=== PATIENT | female | born 1945 | race Caucasian/White ===

== ENCOUNTER 2019-08-30 09:15 | Outpatient (CLI) | payer MEDICARE, SELFPAY ==
--- NOTE | ~2019-08-30 | MM_ITS ---
EXAMINATION: MM screening joshua LT w justine HISTORY: Screening mammogram TECHNIQUE: Craniocaudal and mediolateral oblique 3-D tomosynthesis images were obtained and synthetic 2-D images were generated. CAD analysis was submitted and interpreted. COMPARISON: 07/06/2018, 07/02/2017, 06/26/2016 left digital screening mammogram examinations BREAST PARENCHYMAL COMPOSITION: There are scattered areas of fibroglandular density. FINDINGS: History of right mastectomy in 1988. History of prior left benign biopsy. There is no evidence of suspicious mass, calcification, or architectural distortion to suggest malig ronaldo in either breast. There has been no suspicious interval change. IMPRESSION: 1. No mammographic evidence of malignancy. 2. Recommend routine screening mammography in one year. BI-RADS Category 1: Negative Reviewed, dictated and finalized at location A.
== END 2019-08-30 09:16 | disposition home or self-care (01) ==
PROVIDERS: PCP Internal Medicine; Visit Provider Obstetrics & Gynecology
DX: Z12.31 Encounter for screening mammogram for malignant neoplasm of breast (principal)
CPT/HCPCS: 77063; 77067

== ENCOUNTER 2019-10-12 14:48 | Outpatient (CLI) | payer MEDICARE, SELFPAY ==
--- NOTE | ~2019-10-12 | US_ITS ---
EXAMINATION: US venous doppler LE RT EXAM DATE: 10/12/2019 15:20 INDICATION: Right knee swelling. Total knee arthroplasty 2 weeks ago. TECHNIQUE: Multiple grayscale, color flow and Doppler images of the right lower extremity deep venous system were obtained and reviewed. Comparison is made to prior examination from 02/26/2012. FINDINGS: The right common femoral, femoral and profunda veins demonstrate normal color flow, respira tory variation, augmentation and compressibility. Compressibility, color flow confirmed within the r ight popliteal, posterior tibial, peroneal, and greater saphenous veins. Region annotated along lateral aspect right knee demonstrates anechoic fluid collection at 5.4 x 1.3 x 3.7 cm, This is nonspecific but most likely postoperative hematoma seroma, or could be small joint effusion. IMPRESSION: 1. No right lower extremity deep venous thrombosis. 2. Anechoic fluid-filled region lateral aspect of knee, could be hematoma, seroma, or small joint ef fusion. Reviewed, dictated and finalized at location A. IMPRESSION: 1. No right lower extremity deep venous thrombosis. 2. Anechoic fluid-filled region lateral aspect of knee, could be hematoma, ser justin, or small joint effusion.
[2019-10-12 15:41] LABS: Add Urine Microscopic? YES; Appearance Urine Clear (Clear); Bilirubin Urine Negative (Negative); Blood Urine Negative (Negative); Color Urine Yellow (Yellow); Glucose Urine UA Negative (Negative); Ketones Urine Negative (Negative); Leukocyte Esterase Ur Trace LEU/UL (Negative); Mucus Urine Rare /lpf; Nitrate Urine Negative (Negative); Protein Urine Negative (Negative); Specific Grav Ur 1.011 (1.001-1.035); Squamous Epithelial Cell Urine Rare /hpf (Few); Urobilinogen Urine Negative mg/dL (<2.0); WBC Urine 0-3 /hpf
== END 2019-10-12 14:49 | disposition home or self-care (01) ==
PROVIDERS: PCP Internal Medicine; Visit Provider Clinical Nurse Specialist
DX: M79.89 Other specified soft tissue disorders (principal); R35.0 Frequency of micturition
CPT/HCPCS: 81001; 93971

== ENCOUNTER 2020-11-14 05:58 | Emergency (ER) | payer MEDICARE, SELFPAY ==
[2020-11-14] VITALS (9 sets, daily range): BP systolic 147–171; BP diastolic 71–94; PULSE 85–105; RESP 18; TEMP 36.7; O2SAT 94–100
--- NOTE | ~2020-11-14 | US_ITS ---
EXAMINATION: US venous doppler [facility] DATE: 11/14/2020 07:38 INDICATION: Left calf pain. TECHNIQUE: Grayscale ultrasound images without and with compression and Doppler ultrasound images of the left lower extremity veins were obtained. COMPARISON: None. FINDINGS: The visualized portions of left common femoral vein, profunda (deep) femoral vein, femoral vein, popl iteal vein, peroneal veins, posterior tibial veins, and greater saphenous vein outflow are patent. IMPRESSION: 1. No deep venous thrombosis. Reviewed, dictated and finalized at location A.
--- NOTE | 2020-11-14 06:08 | ED.EXTPRO ---
HPI - Extremity Problem General Chief complaint: Extremity Problem,Nontraumatic <Antonio Sewell DO - Last Filed: 11/14/20 14:09> Stated complaint: blood clot? <Antonio Sewell DO - Last Filed: 11/14/20 14:09> Time Seen by Provider: 11/14/20 06:05 <Antonio Sewell DO - Last Filed: 11/14/20 14:09> Source: RN notes reviewed <Antonio Sewell DO - Last Filed: 11/14/20 14:09> History of Present Illness HPI Narrative: Patient presents emergency department from home for left calf pain. Patient states she had knee surgery performed on 10/26/2020 she states that this evening she had several episodes of pain in her left posterior calf and posterior knee she denies any trauma or injury she states the pain is improved at this time she denies any fever chills chest pain shortness of breath or any other symptoms states she is on 81 mg aspirin twice a day <Antonio Sewell DO - Last Filed: 11/14/20 14:09> Related Data Home medications: Home Medications Medication Instructions Recorded Confirmed ascorbic acid (vitamin C) 1,000 mg 1 gm PO DAILY 01/25/19 10/06/20 tablet aspirin 81 mg tablet,delayed 81 mg PO DAILY 01/25/19 10/06/20 release calcium carbonate 600 mg (1,500 cap PO BID cap 01/25/19 10/06/20 mg)-vitamin D3 500 unit capsule camphor-methyl salicylate-menthol patch TOPICAL PRN 01/25/19 10/06/20 topical patch glucosamine-chondroitin 250 mg-200 2 tablet PO .QD tablet 01/25/19 10/06/20 mg tablet menthol 4 % topical gel 1 applic TOPICAL BID PRN ml 01/25/19 10/06/20 hcsfdbcrchwb-ybhuzudm-wscngl tablet 1 tablet PO DAILY 01/25/19 10/06/20 vit C 250 mg-vit E 90 mg-zinc 40 1 tablet PO BID 01/25/19 10/06/20 mg-copper 1 ma-yryvys-nojfuf capsule vitamin B complex 1 tablet PO DAILY 01/25/19 10/06/20 fluticasone propionate 50 1 spray INTRANASAL DAILY 02/09/20 10/06/20 mcg/actuation nasal spray,suspension <Antonio Sewell DO - Last Filed: 11/14/20 14:09> Allergies/Adverse reactions: Allergies Allergy/AdvReac Type Severity Reaction Status Date / Time nitrofurantoin Allergy Mild unknown Verified 11/14/20 06:11 Quinolones Allergy Mild unknown Verified 11/14/20 06:11 ciprofloxacin Allergy Unknown Nausea Verified 11/14/20 06:11 cyclobenzaprine Allergy Unknown Nausea Verified 11/14/20 06:11 guaifenesin Allergy Unknown Unknown Verified 11/14/20 06:11 meloxicam Allergy Unknown Nausea Verified 11/14/20 06:11 pseudoephedrine Allergy Unknown fast heart Verified 11/14/20 06:11 beat GUAIFEN SR Allergy Mild unknown Uncoded 11/14/20 06:11 <Antonio Sewell DO - Last Filed: 11/14/20 14:09> Review of Systems Review of Systems: Gen.: Denies fevers or chills Respiratory: Denies shortness of breath CV: Denies chest pain or palpitations GI: Denies abdominal pain nausea, emesis Musculoskeletal: See HPI Neuro: Denies numbness, tingling, weakness or focal weakness Skin: Denies rash Except as documented, all other systems reviewed and negative <Antonio Sewell DO - Last Filed: 11/14/20 14:09> [facility] Past Medical History Medical History: Medical History ARPIT positive (~2019) Contact dermatitis 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
[2020-11-14 06:49] LABS: Basophils Percent Auto 0.8 % (0.2-1.2); Eosinophils Absolute Auto 0.1 K/mm3 (0-0.3); Eosinophils Percent Auto 2.8 % (0-4.4); Hematocrit 37.1 % (37.0-47.0); Hemoglobin 12.2 g/dL (12.0-15.0); Immature Granulocyte Absolute 0.01 K/mm3 (0.00-0.031); Immature Granulocyte Percent A 0.2 % (0-0.5); Lymphocytes Absolute Auto 1.05 K/mm3 (0.9-3.2); Lymphocytes Percent Auto 20.7 % (18.3-44.2); Mean Corpuscular HGB Conc 32.9 g/dl (32-36); Mean Corpuscular Hemoglobin 32.2 pg (26-34); Mean Corpuscular Volume 97.9 fl (80-100); Mean Platelet Volume 8.6 fl (7.4-10.4); Monocytes Absolute Auto 0.5 K/mm3 (0.1-0.6); Monocytes Percent Auto 10.5 % (2.6-8.5); Neutrophils Absolute Auto 3.3 K/mm3 (1.3-6.7); Platelet Count Result 267 k/mm3 (150-375); Red Blood Count 3.79 M/mm3 (4.2-5.4); Red Cell Distribution Width 13.6 % (11.5-14.5); White Blood Count 5.1 K/mm3 (4.5-10.0)
[2020-11-14 07:03] LABS: Anion Gap 7 mmol/L (8-16); Blood Urea Nitrogen 19 mg/dL (7-17); Calcium 9.4 mg/dL (8.4-10.2); Carbon Dioxide 29 mmol/L (22-30); Chloride 103 mmol/L (98-107); Estimated CRCL calculation 57 ml/min; Estimated Glomerular Filt Rate > 60; Glucose 115 mg/dL (65-110); Potassium 3.7 mmol/L (3.4-5.0); Sodium 139 mmol/L (137-145)
[2020-11-14 07:09] LABS: Prothrombin Time 12.8 Seconds (11.1-14.7)
[2020-11-14 07:10] LABS: Partial Thromboplastin Time 28.4 SECONDS (22.3-36.8)
== END 2020-11-14 09:04 | disposition home or self-care (01) ==
PROVIDERS: Emergency Medicine; Emergency Provider Emergency Medicine; PCP Internal Medicine
DX: M79.605 Pain in left leg (principal); I10 Essential (primary) hypertension; G47.33 Obstructive sleep apnea (adult) (pediatric); Z98.890 Other specified postprocedural states; Z79.82 Long term (current) use of aspirin; Z79.899 Other long term (current) drug therapy
CPT/HCPCS: 36415; 80048; 85025; 85610; 85730; 93971; 99284

== ENCOUNTER 2022-02-04 15:03 | Outpatient (CLI) | payer MEDICARE, SELFPAY ==
--- NOTE | ~2022-02-04 | MM_ITS ---
EXAMINATION: MM screening joshua LT w justine HISTORY: Screening left mammogram, history of right mastectomy TECHNIQUE: Craniocaudal and mediolateral oblique 3-D tomosynthesis images were obtained and synthetic 2-D images were generated. CAD analysis was submitted and interpreted. COMPARISON: 08/30/2019, 07/06/2018, 07/02/2017 BREAST PARENCHYMAL COMPOSITION: There are scattered areas of fibroglandular density. FINDINGS: No suspicious mass, calcification, or architectural distortion are identified to suggest ma lignancy. There has been no suspicious interval change.. IMPRESSION: 1. No mammographic evidence of malignancy. 2. Recommend routine screening mammography in one year. BI-RADS Category 1: Negative Reviewed, dictated and finalized at location A. WELL LOGGER
== END 2022-02-04 15:04 | disposition home or self-care (01) ==
PROVIDERS: PCP Internal Medicine; Visit Provider Obstetrics & Gynecology
DX: Z12.31 Encounter for screening mammogram for malignant neoplasm of breast (principal)
CPT/HCPCS: 77063; 77067

== ENCOUNTER → 2022-08-21 12:00 | Outpatient (CLI) | payer MEDICARE, SELFPAY ==
--- NOTE | ~2022-08-21 | US_ITS ---
EXAMINATION: US renal BI DATE: 08/22/2022 14:46 INDICATION: Bilateral flank pain. TECHNIQUE: Multiple ultrasound grayscale images of the kidneys were obtained. COMPARISON: Ultrasound kidneys 03/31/13 FINDINGS: The right kidney measures 10.9 x 4.5 x 4.3 cm. The left kidney measures 10.6 x 5.1 x 5.0 cm. The kidn eys demonstrate normal parenchymal echogenicity. There are cysts in the kidneys measuring up to 3.8 c m on the left. There is no hydronephrosis. The bladder is not well distended. IMPRESSION: 1. Normal kidney sizes. No hydronephrosis. Reviewed, dictated and finalized at location A.
== END ==
PROVIDERS: PCP Nurse Practitioner Adult Health; Visit Provider Nurse Practitioner Adult Health
DX: R10.9 Unspecified abdominal pain (principal)
CPT/HCPCS: 76775

== ENCOUNTER 2023-04-10 09:46 | Outpatient (CLI) | payer MEDICARE, SELFPAY ==
--- NOTE | ~2023-04-10 | MM_ITS ---
EXAMINATION: MM screening joshua LT w justine HISTORY: Screening TECHNIQUE: Craniocaudal and mediolateral oblique 3-D tomosynthesis images were obtained and synthetic 2-D images were generated. CAD analysis was submitted and interpreted. COMPARISON: Comparison to multiple prior studies sequentially, with oldest reviewed study dated 06/19. BREAST PARENCHYMAL COMPOSITION: There are scattered areas of fibroglandular density. FINDINGS: There is no evidence of suspicious mass, calcification, or architectural distortion to sugg est malignancy in either breast. There has been no suspicious interval change. IMPRESSION: 1. No mammographic evidence of malignancy. 2. Recommend routine screening mammography in one year. BI-RADS Category 1: Negative Reviewed, dictated and finalized at location A. ER HELPER VINYL COATING
== END 2023-04-10 09:47 | disposition home or self-care (01) ==
PROVIDERS: PCP Internal Medicine; Visit Provider Obstetrics & Gynecology
DX: Z12.31 Encounter for screening mammogram for malignant neoplasm of breast (principal)
CPT/HCPCS: 77063; 77067

== ENCOUNTER 2024-05-21 12:38 | Outpatient (CLI) | payer MEDICARE, SELFPAY ==
--- OUTSIDE RECORDS SUMMARY | 2024-05-21 12:41 | XMS_ITS | Referral Summary ---
Author Organization [facility] at the [facility] Office Center Address [address] [place] [address] Care Team Providers Care Hook Up Name Role Phone Shira Adan RN Unavailable Unavailable Shira Adan RN Unavailable Unavailable Shira Adan RN Unavailable Unavailable Monroe Reyes DO Primary Care Provider [phone] Allergies Active Allergy Reactions Criticality Noted Date Comments Ciprofloxacin Cyclobenzaprine Nausea And Vomiting 08/23/2019 Guaifenesin Palpitations Low 08/23/2019 Heart racing Meloxicam Nausea And Vomiting,Nausea only Low 08/23/2019 Nitrofurantoin Rash Medium 08/23/2019 Pseudoephedrine Palpitations Low 07/21/2012 Pseudoephedrine Sulfate Other (See comments) Low Quinolones Nausea And Vomiting,Nausea & Vomiting Low 07/21/2012 Medications amLODIPine (NORVASC) 5 mg tablet Take 1 tablet (5 mg total) by mouth daily 0 Active atorvastatin (LIPITOR) 10 mg tablet Take 1 tablet (10 mg total) by mouth nightly 2 Active celecoxib (CeleBREX) 200 mg capsule Take 1 capsule (200 mg total) by mouth 2 (two) times a day 3 Active methylcellulose , laxative, (CITRUCEL) 500 mg tablet Take 1 tablet (500 mg total) by mouth daily Active hydroCHLOROthia zide (HYDRODIURIL) 12.5 mg tablet Take 1 tablet (12.5 mg total) by mouth daily 12/28/202 3 Active glucosamine-cho ndroitin 500-400 mg capsule Take 2 capsules by mouth daily 0 Active ascorbic acid (VITAMIN C) 1,000 mg tablet Take 1 tablet (1,000 mg total) by mouth daily 0 Active vit A/vit C/vit E/zinc/copper (PRESERVISION AREDS ORAL) Take 1 tablet by mouth 2 (two) times a day 0 Active calcium carbonate-vitam in D3 (Calcium 600 with Vitamin D3) 1,500 mg (600 mg elemental)-500 unit capsule Take 1 tablet by mouth daily 0 Active lidocaine HCL-benzyl alcohoL (Salonpas Lidocaine Plus) 4-10 % liquid roll-on Apply topically Active lidocaine-menth ol 4-1 % adhesive patch,medicated Apply topically Active bacitracin 500 unit/gram ointmentIndicat ions:Contusion of left forearm, initial encounter Apply topically 2 (two) times a day 28 g 4 Active Active Problems Problem Noted Date Diagnosed Date Varicose veins of left lower extremity with pain 12/06/2022 Assessment & Plan (12/06/2022 1:26 PM CDT): Left lower extremity CEAP C3 disease symptomatic varicosities, risks benefits alternatives to left GSV ablation and stab phlebectomies discussed, risks including bleeding, infection, DVT/PE, thermal injury to surrounding structures, need for further surgery. She wished to proceed. Presence of left artificial knee joint 2 Primary osteoarthritis of left knee 08/25/2020 Spinal stenosis 05/13/2013 AVN (avascular necrosis of bone) 07/21/2012 Social History Tobacco Use Types Packs/Day Years Used Date Smoking Tobacco: Former Personal Safety Answer Date Recorded Getting School Help Needed Not on file 03/12 Comments Unknown Sex and Gender Information Value Date Recorded Sex Assigned at Not on file Legal Sex Female 6:43 PM MEDICAL WRITER Gender Identity Female 11/14/2022 12:33 PM CDT Sexual Orientation Choose not to disclose 2022 12:33 PM CDT Last Filed Vital Signs Vital Sign Reading Time Taken Comments Blood Pressure 138/76 06/30/2023 9:11 AM CDT Pulse 76 06/30/2023 9:11 AM CDT Temperature 37 C (98.6 F) 06/30/2023 9:11 AM CDT Respiratory Rate 20 06/30/2023 9:11 AM CDT Oxygen Saturation 99% 06/30/2023 9:11 AM CDT Inhaled Oxygen Concentration - - Weight 87.5 kg (193 lb) 06/30/2023 9:11 AM CDT Height 162.6 cm (5' 4 ) 06/30/2023 9:11 AM CDT Body Mass Index 33.13 06/30/2023 9:11 AM CDT Plan of Treatment Not on file Insurance AETNA MEDICARE AETNA MEDICARE Care Teams Hook Up Relationship Specialty Start Date End Date Monroe Reyes DO PCP - General Internal Medicine 10/22/22 Shira Adan, metal building assembler 11/03/19 Shira Adan, metal building assembler 12/06/19 Shira Adan, metal building assembler 01/07/20
--- OUTSIDE RECORDS SUMMARY | 2024-05-21 12:41 | XMS_ITS | Encounter Summary ---
Author Organization [facility] Address [address] [place] [address] Care Team Providers Care Apn Name Role Phone Deacon Sainz MD Unavailable Monroe Reyes DO Primary Care Provider [phone] Montserrat Garcia MD Unavailable Deacon Sainz MD Unavailable [phone] Encounter Details Date Type Department Care Team (Late st Contact Info) Description 04/07/2024 Lab Requisition [facility] - DermPath Lab [address] [facility] [place] [address] Giulia Nicholson MD [address] [facility] 3 [place] [address] Social History Tobacco Use Types Packs/Day Years Used Date Smoking Tobacco: Never Smokeless Tobacco: Never Alcohol Use Standard Drinks/Week Comments Yes 0 (1 standard drink = 0.6 oz pur e alcohol) once a month PHQ-2 Answer Date Recorded Patient Health Questionnaire-2 Score 0 12/29/2023 Sex and Gender Information Value Date Recorded Sex Assigned at Not on file Gender Identity Female 10/23/2021 8:54 PM CDT Sexual Orientation Choose not to disclose 2021 8:54 PM CDT documented as of this encounter Plan of Treatment Not on file documented as of this encounter Procedures Procedure Name Priority Date/Time Associated Diagnosis Comments DERMATOPATHOLOGY Routine 04/07/2024 1:35 PM SUPERVISOR TELLERS documented in this encounter Results * DERMATOPATHOLOGY (04/07/2024 1:35 PM SUPERVISOR TELLERS) Case Report Dermatopathology Report Case: [id number] Authorizing Provider: Giulia Nicholson MD Collected: 04/07/2024 01:35 PM Ordering Location: [facility] - Received: 04/08/2024 10:44 AM DermPath Lab Pathologist: An Woods MD Specimen: Skin, right upper eyebrow 6:09 PM [facility] DERMATOPATHOLOGY LABORATORY Final Diagnosis Specimen A. 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 The specimen consists of a shave biopsy measuring 6x4x1 mm. Jar 0. 6:09 PM [facility] DERMATOPATHOLOGY LABORATORY Microscopic Description Specimen A. SKIN, right upper eyebrow: The epidermis shows parakeratosis, full thickness disorderly maturation of keratinocytes, mitoses at different levels, and dyskeratotic cells. 6:09 PM [facility] DERMATOPATHOLOGY LABORATORY Disclaimer An external and internal positive and negative controls are appropriate for the histochemical, immunohistochemical and immunofluorescence stain(s) in this case (if any), except where stated explicitly. The performance characteristics of the stain(s) cited in this report were developed and its performance characteristic determined by the Dermatopathology Laboratory at [facility], directed by Dr. Adams Moody. These tests need not be, and therefore are not, approved by the [place] Food and Drug Administration. The tests are used for clinical purposes. Billing Codes Specimen Charges Stain Charges 27114 1 6:09 PM [facility] DERMATOPATHOLOGY LABORATORY Embedded Images 6:09 PM [facility] DERMATOPATHOLOGY LABORATORY Pathology/Cytolo gy TISSUE SPECIMEN FROM SKIN / Unknown 04/07/2024 1:35 PM SUPERVISOR TELLERS 04/08/2024 10:44 AM SUPERVISOR TELLERS Giulia Nicholson MD LAB - PATHOLOGY/CYT OLOGY ORDERABLES DERMATOPATHOLOGY LABORATORY [facility] - Department of Dermatology [address], [address] [phone] documented in this encounter Visit Diagnoses Not on filedocumented in this encounter Care Teams Apn Relationship Specialty [place] [address] [place] [address] PCP - General Internal Medicine 07/21/12 [place] [address] [place] [address] Orthopedic Surgery 07/21/12 [place] [address] [place] [address] Orthopedic Surgery 10/24/14 [place] [address] [place] [address] Surgeon Orthopedic Surgery 08/25/20 documented as of this encounter
--- OUTSIDE RECORDS SUMMARY | 2024-05-21 12:41 | XMS_ITS | Encounter Summary ---
Author Organization [facility] Address [address] [place] [address] Care Team Providers Care Polysomnography Technician Name Role Phone Deacon Sainz MD Unavailable [phone] Monroe Reyes DO Primary Care Provider Montserrat Garcia MD Unavailable Deacon Sainz MD Unavailable [phone] Encounter Details Date Type Department Care Team (Late st Contact Info) Description 03/13/2023 Lab Requisition [facility] Physician [facility] - DermPath Lab [address] [facility] [place] [id number] Christen Kim DO [address] [facility] [address]L [place] [address] Social History Tobacco Use Types Packs/Day Years Used Date Smoking Tobacco: Never Smokeless Tobacco: Never Alcohol Use Standard Drinks/Week Comments Yes 0 (1 standard drink = 0.6 oz pur e alcohol) once a month Sex and Gender Information Value Date Recorded Sex Assigned at Not on file Gender Identity Female 10/23/2021 8:54 PM CDT Sexual Orientation Choose not to disclose 2021 8:54 PM CDT documented as of this encounter Plan of Treatment Not on file documented as of this encounter Procedures Procedure Name Priority Date/Time Associated Diagnosis Comments DERMATOPATHOLOGY Routine 03/13/2023 2:27 PM MICROGRINDER OPERATOR documented in this encounter Results * DERMATOPATHOLOGY (03/13/2023 2:27 PM MICROGRINDER OPERATOR) Case Report Dermatopathology Report Case: [id number] Authorizing Provider: Christen Kim DO Collected: 03/13/2023 02:27 PM Ordering Location: [facility] DermPath Lab Received: 03/14/2023 02:01 PM Pathologist: An Woods MD Specimens: A) - Skin, right chest B) - Skin, right mid arm 12:54 PM [facility] DERMATOPATHOLOGY LABORATORY Final Diagnosis Specimen A. SKIN, right chest: LICHEN PLANUS-LIKE KERATOSIS (BENIGN LICHENOID KERATOSIS) (L82.1) Specimen B. SKIN, right mid arm: HYPERPLASTIC (HYPERTROPHIC) ACTINIC KERATOSIS (L57.0) 12:54 PM [facility] DERMATOPATHOLOGY LABORATORY Clinical History A: R/O BCC B: SK R/O Atypia 12:54 PM [facility] DERMATOPATHOLOGY LABORATORY Gross Description Specimen A: Received is one formalin filled container labeled with the patient's name and designated right chest. The specimen consists of a shave biopsy measuring 5x4x1 mm. Jar 0. Specimen B: Received is one formalin filled container labeled with the patient's name and designated right mid arm. The specimen consists of a shave biopsy measuring 11x9x1 mm. Jar 0. 12:54 PM [facility] DERMATOPATHOLOGY LABORATORY Microscopic Description Specimen A. SKIN, right chest: The epidermis is mildly acanthotic. There is a lichenoid infiltrate with vacuolar changes of basilar keratinocytes and scattered necrotic keratinocytes. Specimen B. SKIN, right mid arm: There is hyperkeratosis alternating with parakeratosis. There is epidermal hyperplasia with disorderly maturation of keratinocytes with nuclear pleomorphism confined to the lower half of the epidermis. 12:54 PM [facility] DERMATOPATHOLOGY LABORATORY Disclaimer An external and internal positive and negative controls are appropriate for the histochemical, immunohistochemical and immunofluorescence stain(s) in this case (if any), except where stated explicitly. The performance characteristics of the stain(s) cited in this report were developed and its performance characteristic determined by the Dermatopathology Laboratory at [facility], directed by Dr. Adams Moody. These tests need not be, and therefore are not, approved by the [place] Food and Drug Administration. The tests are used for clinical purposes. Billing Codes Specimen Charges Stain Charges 15822 47960 1 1 4 12:54 PM MICROGRINDER OPERATOR DERMATOPATHOLOGY LABORATORY Embedded Images 12:54 PM MICROGRINDER OPERATOR DERMATOPATHOLOGY LABORATORY Pathology/Cytology TISSUE SPECIMEN FROM SKIN / Unknown 03/13/2023 2:27 PM MICROGRINDER OPERATOR 03/14/2023 2:01 PM MICROGRINDER OPERATOR Miscellaneous samples (specimen) TISSUE SPECIMEN FROM SKIN / Unknown 03/13/2023 2:27 PM MICROGRINDER OPERATOR 03/14/2023 2:01 PM MICROGRINDER OPERATOR Christen Kim DO LAB - PATHOLOGY/C YTOLOGY ORDERABLES DERMATOPATHOLOGY LABORATORY [facility] - Department of Dermatology [facility] Medicine [address] [place] [address], [address] [phone] documented in this encounter Visit Diagnoses Not on filedocumented in this encounter Care Teams Polysomnography Technician Relationship Specialty [place] [id number] [place] [address] PCP - General Internal Medicine 07/21/12 [place] [address] [place] [address] Orthopedic Surgery 07/21/12 [place] [address] [place] [address] Orthopedic Surgery 10/24/14 [place] [address] [place] [address] Surgeon Orthopedic Surgery 08/25/20 documented as of this encounter
--- OUTSIDE RECORDS SUMMARY | 2024-05-21 12:41 | XMS_ITS | Clinical Summary ---
Author Organization [facility] Care Team Providers Care Body Work Auto Trimmer Name Role Phone Unavailable Primary Care Provider Unavailabl e Social History Tobacco Use Types Packs/Day Years Used Date Smoking Tobacco: Never Assessed Comments Unknown Sex and Gender Information Value Date Recorded Sex Assigned at Not on file Legal Sex Female 10:13 AM SINTER PRESS OPERATOR Gender Identity Not on file Sexual Orientation Not on file Plan of Treatment Health Maintenance Due Date Last Done Comments DEXA Bone Density 1945 Hepatitis C Virus (HCV) Screening 1945 TdaP Immunization 1945 Respiratory Syncytial Virus (RSV) Immunization (Adult) (1 - 1-dose 75+ series) 2018 Influenza Immunization (#1) 11/09/202311/09, 11/17/2019, 11/30/2018, Additional history exists SARS-COV-2 Immunization ( season) 2023 12/19/2020, 05/23/2020, 05/01/2020 Pneumococcal Immunization (50+ years) Completed 03/31/2017, 03/08/2016, 12/19/2014 Zoster Immunization Completed 09/16/2017, 8 Hepatitis B Immunization Aged Out No longer eligible based on patient's age to complete this topic Meningococcal Immunization (ACWY) Aged Out No longer eligible based on patient's age to complete this topic Rotavirus Immunization Aged Out No lo nger eligible based on patient's age to complete this topic
--- OUTSIDE RECORDS SUMMARY | 2024-05-21 12:41 | XMS_ITS | Patient Health Summary ---
Author Organization [facility] Address [address] [place] [address] Care Team Providers Care Forest Fire Warden Name Role Phone Deacon Sainz MD Unavailable Monroe Ryees DO Primary Care Provider [phone] Montserrat Garcia MD Unavailable Deacon Sainz MD Unavailable Note from [facility],non-owned Affiliates and Associated Physician Practices is amultiple site organization consisting of ambulatory clinics and hospital sitesin [place], [place], [place] and [place]. This disclosure is being madepursuant to the Care Everywhere program and may not contain all information available regarding this patient. Last updated 17.[facility] Allergies * Cyclobenzaprine(Nausea and/or Vomiting) * Guaifenesin(Palpitations) * Meloxicam(Nausea and/or Vomiting) * Nitrofurantoin(Unknown) -Low Criticality * Quinolones(Nausea and/or Vomiting,Unknown) -Low Criticality * Pseudoephedrine Sulfate(Elevated Blood Pressure) * Ciprofloxacin(Nausea and/or Vomiting),Inactive Medications * Be aware that medications may not be up to date on this document. Alwaysverify current medications with the patient. * amLODIPine (NORVASC) 5 MG tablet(Started 08/18/2019) Take 5 mg by mouth once daily * B Complex-C (VITAMIN B COMPLEX WITH C)(Started 10/01/2019) Take 1 tablet by mouth once daily * glucosamine-chondroitin 500-400 MG capsule(Started 10/01/2019) Take 2 capsules by mouth once daily * Multiple Vitamins-Minerals (CENTRUM SILVER 50+WOMEN) TABS(Started 10/01/2019) Take 1 tablet by mouth once daily * hydroCHLOROthiazide (MICROZIDE) 12.5 MG capsule Take 12.5 mg by mouth once daily * calcium carbonate - vitamin D (CALCIUM+D3) 600-800 MG-UNIT tablet Take 1 tablet by mouth daily with breakfast * ascorbic acid (VITAMIN C) 500 MG tablet Take 500 mg by mouth once daily * methylcellulose (CITRUCEL) 500 MG tablet Take 500 mg by mouth once daily * Multiple Vitamins-Minerals (PRESERVISION AREDS 2) capsule Take 2 capsules by mouth 2 times daily * HYDROcodone-acetaminophen (NORCO) 5-325 MG tablet(Started 11/16/2020) Take 1 (one) tablet by mouth every 6 hours as needed for Pain * amoxicillin-clavulanate (Augmentin) 875-125 MG tablet(Started 07/25/2021) Take 875 mg by mouth 2 times daily * atorvastatin (Lipitor) 10 MG tablet(Started 04/24/2021) Take 10 mg by mouth at bedtime * hydrOXYzine HCl (Atarax) 10 MG tablet(Started 05/25/2021) Take 10 mg by mouth 2 times daily as needed anxiety * mupirocin (Bactroban) 2 % ointment(Started 10/16/2021) APPLY TO RIGHT CHEEK TWICE DAILY * sulfamethoxazole-trimethoprim (Bactrim DS; Septra DS) 800-160 MG tablet (Started 08/01/2021) Take 1 tablet by mouth 2 times daily * celecoxib (CeleBREX) 200 MG capsule(Started 09/23/2022) TAKE 1 CAPSULE BY MOUTH TWICE DAILY 3 refills by 09/23/2023 * celecoxib (CeleBREX) 200 MG capsule(Started 01/01/2024) Take 1 (one) capsule by mouth 2 times daily 2 refills by 12/31/2024 Active Problems Problem Noted Date Diagnosed Date Presence of left artificial knee joint 2 Primary osteoarthritis of left knee 08/25/2020 History of breast cancer 07/21/2012 AVN (avascular necrosis of bone) 07/21/2012 Immunizations * INFLUENZA VACCINE, HIGH-DOSE, QUADR. (FLUZONE HIGH-DOSE QUADRIVALENT; 65Y+), 0.7 ML (HD-IIV4)(Given 11/17/2019, 11/30/2018) Social History Tobacco Use Types Packs/Day Years [...] not to disclose 2021 8:54 PM CDT Last Filed Vital Signs Vital Sign Reading Time Taken Comments Blood Pressure 126/69 10/27/2020 11:12 AM CDT Pulse 74 10/27/2020 11:12 AM CDT Temperature 36.7 C (98.1 F) 10/27/2020 11:12 AM CDT Respiratory Rate 17 10/27/2020 11:12 AM CDT Oxygen Saturation 99% 10/27/2020 11:12 AM CDT Inhaled Oxygen Concentration - - Weight 88.5 kg (195 lb 3.2 oz) 10/26/2020 8:04 A M CDT Height 165.1 cm (5' 5 ) 10/26/2020 8:04 AM CDT Body Mass Index 32.48 10/26/2020 8:04 AM CDT Medical Devices Implanted Type Area Distributor Advertising Material Device Identifier Shelf Expiration Date Model / Serial / Lot Cmnt Bone Djo Srg Cblt 40gm Hvisc Strl Implanted:Qty: 1 on 10/26/2020 by Deacon Sainz MD at [facility] Left: Knee [employer] 04/11/2022 600-15-000 / / [id number] Cmpnt Ptlr 28mm 1 Pg Wire Ascnt Arcm Kn Implanted:Qty: 1 on 10/26/2020 by Deacon Sainz MD at [facility] Left: Knee [employer] 07/28/2025 [id number] / / [id number] Cmpnt Fem Kn Lt Cr Cmnt Prm Vngrd Intlk Implanted:Qty: 1 on 10/26/2020 by Deacon Sainz MD at [facility] Left: Knee [employer] 05/17/2030 [id number] / / [id number] Tray Tib 75mm Kn Cocr I Beam Implanted:Qty: 1 on 10/26/2020 by Deacon Sainz MD at [facility] Left: Knee [employer] 08/15/2030 [id number] / / [id number] Brng [id number] Vngrd Arcm Kn Ant Stab Implanted:Qty: 1 on 10/26/2020 by Deacon Sainz MD at [facility] Left: Knee [employer] 08/08/2025 [id number] / / [id number] Procedures * DERMATOPATHOLOGY(Performed 04/07/2024) * XR KNEE LEFT 3VW(Performed 01/01/2024) Performed for Status post left knee replacement * DERMATOPATHOLOGY(Performed 03/13/2023) * XR KNEE LEFT 3VW(Performed 10/26/2021) Performed for Aftercare following left knee joint replacement surgery * DERMATOPATHOLOGY(Performed 12/21/2020) * XR KNEE LEFT 3VW(Performed 12/14/2020) Performed for Aftercare following left knee joint replacement surgery * NEURAXIAL BLOCK(Performed 10/26/2020) * ARTHROPLASTY TOTAL KNEE(Performed 10/26/2020) * EKG 12-LEAD(Performed 09/28/2020) Performed for Pre-op evaluation * COMPREHENSIVE METABOLIC PANEL(Performed 09/28/2020) Performed for Pre-op evaluation * CBC W AUTO DIFFERENTIAL(Performed 09/28/2020) Performed for Pre-op evaluation * XR KNEE RIGHT 3VW(Performed 12/28/2012) Performed for Pain in joint, lower leg Results * DERMATOPATHOLOGY (04/07/2024 1:35 PM WORM SORTER) Only the most recent of3 resultswithin the time period is included. Case Report Dermatopathology Report Case: [id number] Authorizing Provider: Giulia Nicholson MD Collected: 04/07/2024 01:35 PM Ordering Location: [facility] - Received: 04/08/2024 10:44 AM DermPath [...] characteristic determined by the Dermatopathology Laboratory at [facility], directed by Dr. Adams Moody. These tests need not be, and therefore are not, approved by the [place] Food and Drug Administration. The tests are used for clinical purposes. Billing Codes Specimen Charges Stain Charges 93786 1 6:09 PM [facility] DERMATOPATHOLOGY LABORATORY Embedded Images 6:09 PM [facility] DERMATOPATHOLOGY LABORATORY Pathology/Cytolo gy TISSUE SPECIMEN FROM SKIN / Unknown 04/07/2024 1:35 PM WORM SORTER 04/08/2024 10:44 AM [facility] Giulia Nicholson MD LAB - PATHOLOGY/CYT OLOGY ORDERABLES DERMATOPATHOLOGY LABORATORY [facility] - Department of Dermatology [address] [place], [place] [address] [place] [address] * XR Knee Left 3Vw (01/01/2024 4:47 PM CDT) Only the most recent of3 resultswithin the time period is included. Narrative [facility] [place] [address] - 01/01/2024 4:47 PM CDT Please see progress note in Epic for results. Deacon Sainz MD DIAGNOSTIC IMAGING O ALESSANDRO [facility] [place] [address] * Neuraxial Block (10/26/2020 10:45 AM CDT) Narrative Jaquan Dudley APRN-CRNA - 10/26/2020 10:45 AM CDT Jaquan Dudley APRN-CRNA 10/26/2020 10:47 AM Neuraxial Block Note Pre-Procedure: Procedure Name: Neuraxial Block Patient Location: OR Indications: surgical anesthesia Pre-Anesthetic Checklist: Patient identified, IV Checked, Risks and benefits discussed, Surgical consent verified, Monitors and equipment, Site examined, Pre-op evaluation done, Time-out performed, Informed consent obtained, Questions answered/anesthesia questions answered and Allergies reviewed Anticoagulation/ Anti-thrombosis status confirmed? Yes Supplemental O2: room air Monitors: BP, continuous pluse ox and EKG Patient Condition: sedated, meaningful contact maintained throughout procedure Procedure: Block Type: Spinal Prep: Betadine Sterile Field: mask, cap/hat, sterile established and sterile gloves Approach: midline Spinal Block: Needle Type: spinal needle Needle Gauge: 25 Needle Length: 90 mm Placement Site: L4-5 Number of Attempts: 1 CSF: free flow, aspiration before injection, aspiration during injection, aspiration after injection Local anesthetics used? No Degree of difficulty: none Procedure Tolerance: tolerated well Sensory Level: T10 Motor Blockade: Yes Position post procedure: supine Vital Signs: Vital signs monitored and stable throughout. See anesthesia record for details. Start Time: 10/26/2020 10:06 AM End Time: 10/26/2020 10:08 AM Total Time: 2 Staff: Anesthesia Provider: Jaquan Dudley APRN-CRNA - performed the procedure Wil Ivy MD GENERAL ANESTHESIA O ALESSANDRO * EKG 12-LEAD (09/28/2020 2:15 PM CDT) Ventricular Rate 84 BPM [facility] Atrial Rate 84 BPM [facility] P-R Interval 168 ms [facility] QRS Duration ms 84 ms [facility] Q-T Interval ms 380 ms [facility] QTC Calculation (Bezet) 449 ms [facility] Calculated P Henry 51 degrees [facility] Calculated R Henry -21 degrees [facility] Calculated T Henry 2 degrees [facility] Interpretation EKG Normal sinus rhythm Minimal voltage criteria for LVH, may be normal variant Borderline ECG No previous ECGs available Confirmed by RAMU GREWAL MD ([id number]) on 09/29/2020 10:25:37 AM [facility] 09/28/2020 2:15 PM CDT 09/29/2020 10:25 AM CDT Giulia Rivera DO ECG ORDERABLES [facility] * (ABNORMAL) CBC W AUTO DIFFERENTIAL (09/28/2020 1:53 PM CDT) WBC 4.9 4.4 - 10.7 x10E9/L 09/28/2020 2:13 PM CDT [facility] WBC Corrected 09/28/2020 2:13 PM CDT [facility] RBC 4.03 3.80 - 5.20 x10E12/L 09/28/2020 2:13 PM CDT [facility] Hemoglobin 13.0 12.0 - 15.6 gm/dL 09/28/2020 2:13 PM CDT [facility] Hematocrit 39.6 35.9 - 45.5 % 09/28/2020 2:13 PM CDT [facility] MCV 98.3 80.7 - 98.3 fl 09/28/2020 2:13 PM CDT [facility] MCH 32.3 26.7 - 34.0 pg 09/28/2020 2:13 PM CDT [facility] MCHC 32.8 30.8 - 35.9 gm/dL 09/28/2020 2:13 PM CDT [facility] Platelet Count 220 153 - 416 x10E9/L 09/28/2020 2:13 PM CDT [facility] RDW-CV 12.9 12.1 - 14.9 % 09/28/2020 2:13 PM CDT [facility] MPV 9.0(L) 9.4 - 12.9 fl 09/28/2020 2:13 PM CDT [facility] Neutrophils % 54.8 44.0 - 73.0 % 09/28/2020 2:13 PM CDT [facility] Lymphocytes % 30.0 20.0 - 43.0 % 09/28/2020 2:13 PM CDT [facility] Monocytes % 12.0 5.0 - 13.0 % 09/28/2020 2:13 PM CDT [facility] Eosinophils % 2.2 0.0 - 6.0 % 09/28/2020 2:13 PM CDT [facility] Basophils % 0.6 0.0 - 2.0 % 09/28/2020 2:13 PM CDT [facility] Immature Granulocytes 0.4 0 - 1 % 09/28/2020 2:13 PM CDT [facility] Neutrophil Absolute 2.70 2.01 - 7.14 x10E9/L 09/28/2020 2:13 PM CDT [facility] Lymphocytes Absolute 1.48 1.07 - 3.94 x10E9/L 09/28/2020 2:13 PM CDT [facility] Monocytes Absolute 0.59 0.26 - 1.07 x10E9/L 09/28/2020 2:13 PM CDT [facility] Eosinophils Absolute 0.11 0 - 0.47 x10E9/L 09/28/2020 2:13 PM CDT [facility] Basophils Absolute 0.03 0 - 0.08 x10E9/L 09/28/2020 2:13 PM CDT [facility] Immature Granulocytes Absolute 0.02 0.00 - 0.06 x10E9/L 09/28/2020 2:13 PM CDT [facility] nRBC Auto 0 /100 WBC 09/28/2020 2:13 PM CDT [facility] Blood BLOOD SPECIMEN / Unknown Venipuncture / Unknown 09/28/2020 1:53 PM CDT 09/28/2020 2:06 PM CDT Tash Moss HEALTHCARE CONSULTING MANAGER-PULP TESTER LAB - HA TOLOGY ORDERABLES [facility] [address] [place] [address] * (ABNORMAL) COMPREHENSIVE METABOLIC PANEL (09/28/2020 1:53 PM CDT) Glucose 91 70 - 105 mg/dL 09/28/2020 2:27 PM CDT [facility] Sodium 141 136 - 145 mmol/L 09/28/2020 2:27 PM CDT [facility] Potassium 3.6 3.5 - 5.1 mmol/L 09/28/2020 2:27 PM CDT [facility] Chloride 103 98 - 107 mmol/L 09/28/2020 2:27 PM CDT [facility] CO2 27 23 - 31 mmol/L 09/28/2020 2:27 PM CDT [facility] Calcium 10.1 8.4 - 10.4 mg/dL 09/28/2020 2:27 PM CDT [facility] Anion Gap 11 8 - 18 mmol/L 09/28/2020 2:27 PM CDT [facility] BUN 24(H) 9.8 - 20.1 mg/dL 09/28/2020 2:27 PM CDT [facility] Creatinine 0.80 0.57 - 1.11 mg/dL 09/28/2020 2:27 PM CDT [facility] Alkaline Phosphatase 87 40 - 150 U/L 09/28/2020 2:27 PM CDT [facility] ALT 21 0 - 61 U/L 09/28/2020 2:27 PM CDT [facility] AST 19 5 - 34 U/L 09/28/2020 2:27 PM CDT [facility] Protein Total 7.5 6.4 - 8.3 gm/dL 09/28/2020 2:27 PM CDT [facility] Albumin 4.1 3.2 - 4.6 gm/dL 09/28/2020 2:27 PM CDT [facility] Bilirubin Total 0.4 0.2 - 1.2 mg/dL 09/28/2020 2:27 PM CDT [facility] eGFR by MDRD >60 mL/min/1.7 3m2 09/28/2020 2:27 PM CDT [facility] eGFR by MDRD >60 mL/min/1.7 3m2 09/28/2020 2:27 PM CDT [facility] Blood BLOOD SPECIMEN / Unknown Venipuncture / Unknown 09/28/2020 1:53 PM CDT 09/28/2020 2:06 PM CDT Tash Moss HEALTHCARE CONSULTING MANAGER-PULP TESTER LAB - CHEM ISTRY ORDERABLES [facility] [address] [place] [address] * XR KNEE 3 VW RIGHT (12/28/2012 2:11 PM CDT) Anatomical Region Laterality Modality Lower Extremity Radiographic Allison ging Narrative 12/28/2012 2:09 PM CDT More Juarez RT(R) 12/28/2012 2:09 PM See progress notes for results Procedure Note More Juarez, RT(R) - 12/28/2012 2:09 PM CDT See progress notes for results Deacon Sainz MD DIAGNOSTIC IMAGING O RDERABLES Care Teams Forest Fire Warden Relationship Specialty [place] [address] [place] [address] PCP - General Internal Medicine 07/21/12 [place] [id number] [place] [address] Orthopedic Surgery 07/21/12 [place] [address] [place] [address] Orthopedic Surgery 10/24/14 [place] [id number] [address] Surgeon Orthopedic Surgery 08/25/20
--- OUTSIDE RECORDS SUMMARY | 2024-05-21 12:41 | XMS_ITS | Referral Summary ---
Author Organization [facility] Address [address] [place] [address] Care Team Providers Care Statistician Name Role Phone Deacon Sainz MD Unavailable Monroe Reyes DO Primary Care Provider [phone] Montserrat Garcia MD Unavailable Deacon Sainz MD Unavailable Source Comments [facility],non-owned Affiliates and Associated Physician Practices is amultiple site organization consisting of ambulatory clinics and hospital sitesin [place], [place], [place] and [place]. This disclosure is being madepursuant to the Care Everywhere program and may not contain all information available regarding this patient. Last updated 17.[facility] Encounters Date Type Department Care Team Description 04/07/2024 Lab Requisition [facility] - DermPath Lab [address] [place] [id number] Giulia Nicholson MD from Last 3 Months Allergies Active Allergy Reactions Criticality Noted Date Comments Cyclobenzaprine Nausea and/or Vomiting 08/23/19 20 Guaifenesin Palpitations 08/23/2019 Heart racing Meloxicam Nausea and/or Vomiting 08/23/2019 Nitrofurantoin Unknown Low 08/23/2019 Quinolones Nausea and/or Vomiting,Unknown Low 07/21/2012 Pseudoephedrine Sulfate Elevated Blood Pressure 07/21/2012 Medications * Be aware that medications may not be up to date on this document. Alwaysverify current medications with the patient. Medication Sig Dispensed Refills Start Date End Date Status amLODIPine (NORVASC) 5 MG tablet Take 5 mg by mouth once daily 08/18/2019 Active B Complex-C (VITAMIN B COMPLEX WITH C) Take 1 tablet by mouth once daily 10/01/2019 Active glucosamine-chondr oitin 500-400 MG capsule Take 2 capsules by mouth once daily 10/01/2019 Active Multiple Vitamins-Minerals (CENTRUM SILVER 50+WOMEN) TABS Take 1 tablet by mouth once daily 10/01/2019 Active hydroCHLOROthiazid e (MICROZIDE) 12.5 MG capsule Take 12.5 mg by mouth once daily Active calcium carbonate - vitamin D (CALCIUM+D3) 600-800 MG-UNIT tablet Take 1 tablet by mouth daily with breakfast Active ascorbic acid (VITAMIN C) 500 MG tablet Take 500 mg by mouth once daily Active methylcellulose (CITRUCEL) 500 MG tablet Take 500 mg by mouth once daily Active Multiple Vitamins-Minerals (PRESERVISION AREDS 2) capsule Take 2 capsules by mouth 2 times daily Active HYDROcodone-acetam inophen (NORCO) 5-325 MG tabletIndications: Aftercare following left knee joint replacement surgery Take 1 (one) tablet by mouth every 6 hours as needed for Pain 28 tablet 11/16/2020 Active Additional Information Patient not taking.Reported on 10/26/2021 amoxicillin-clavul anate (Augmentin) 875-125 MG tablet Take 875 mg by mouth 2 times daily 07/25/2021 Active atorvastatin (Lipitor) 10 MG tablet Take 10 mg by mouth at bedtime 04/24/2021 Active hydrOXYzine HCl (Atarax) 10 MG tablet Take 10 mg by mouth 2 times daily as needed anxiety 05/25/2021 Active mupirocin (Bactroban) 2 % ointment APPLY TO RIGHT CHEEK TWICE DAILY 10/16/2021 Active sulfamethoxazole-t rimethoprim (Bactrim DS; Septra DS) 800-160 MG tablet Take 1 tablet by mouth 2 times daily 08/01/2021 Active celecoxib (CeleBREX) 200 MG capsule TAKE 1 CAPSULE BY MOUTH TWICE DAILY 180 capsule 3 09/23/2022 Active celecoxib (CeleBREX) 200 MG capsule Take 1 (one) capsule by mouth 2 times daily 180 capsule 2 01/01/2024 Active Active Problems Problem Noted Date Diagnosed Date Presence of left artificial knee joint Primary osteoarthritis of left knee 08/25/2020 History of breast cancer 07/21/2012 AVN (avascular necrosis of bone) 07/21/2012 Immunizations Name Administration Dates Next Due INFLUENZA VACCINE, HIGH-DOSE , QUADR. (FLUZONE HIGH-DOSE QUADRIVALENT; 65Y+), 0.7 ML (HD-IIV4) 11/17/2019,11/30/2018 Social History Tobacco Use Types Packs/Day Years [...] Mass Index 32.48 10/26/2020 8:04 AM CDT Plan of Treatment Not on file Medical Devices Implanted Type Area Geriatric Nurse Device Identifier Shelf Expiration Date Model / Serial / Lot Cmnt Bone Djo Srg Cblt 40gm Hvisc Strl Implanted:Qty: 1 on 10/26/2020 by Deacon Sainz MD at [facility] Left: Knee [employer] 04/11/2022 600-15-000 / / [id number] Cmpnt Ptlr 28mm 1 Pg Wire Ascnt Arcm Kn Implanted:Qty: 1 on 10/26/2020 by Deacon Sainz MD at [facility] Left: Knee [employer] 07/28/2025 [id number] / / [id number] Cmpnt Fem Kn Lt Cr Cmnt Prm Vngrd Intlk Implanted:Qty: 1 on 10/26/2020 by Deacon Sainz MD at [facility] Left: Knee [employer] 05/17/2030 [id number] / / [id number] Tray Tib 75mm Kn Cocr I Beam Implanted:Qty: 1 on 10/26/2020 by Deacon Sainz MD at [facility] Left: Knee [employer] 08/15/2030 [id number] / / [id number] [id number] Vngrd Arcm Kn Ant Stab Implanted:Qty: 1 on 10/26/2020 by Deacon Sainz MD at [facility] Left: Knee [employer] 08/08/2025 [id number] / / [id number] Procedures Procedure Name Priority Date/Time Associated Diagnosis Comments DERMATOPATHOLOGY Routine 04/07/2024 1:35 PM SELF PROPELLED DREDGE OPERATOR from Last 3 Months Results * DERMATOPATHOLOGY (04/07/2024 1:35 PM SELF PROPELLED DREDGE OPERATOR) Case Report Dermatopathology Report Case: [id number] Authorizing Provider: Giulia Nicholson MD Collected: 04/07/2024 01:35 PM Ordering Location: [facility] - Received: 04/08/2024 10:44 AM DermPath Lab Pathologist: An Woods MD Specimen: Skin, right upper eyebrow 5 6:09 PM SELF PROPELLED DREDGE OPERATOR DERMATOPATHOLOGY LABORATORY Final Diagnosis Specimen A. 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 The specimen consists of a shave biopsy measuring 6x4x1 mm. Jar 0. 5 6:09 PM [facility] DERMATOPATHOLOGY LABORATORY Microscopic Description Specimen A. SKIN, right upper eyebrow: The epidermis shows parakeratosis, full thickness disorderly maturation of keratinocytes, mitoses at different levels, and dyskeratotic cells. 5 6:09 PM [facility] DERMATOPATHOLOGY LABORATORY Disclaimer An external and internal positive and negative controls are appropriate for the histochemical, immunohistochemical and immunofluorescence stain(s) in this case (if any), except where stated explicitly. The performance characteristics of the stain(s) cited in this report were developed and its performance characteristic determined by the Dermatopathology Laboratory at [facility], directed by Dr. Adams Moody. These tests need not be, and therefore are not, approved by the [place] Food and Drug Administration. The tests are used for clinical purposes. Billing Codes Specimen Charges Stain Charges 81300 1 5 6:09 PM [facility] DERMATOPATHOLOGY LABORATORY Embedded Images 5 6:09 PM [facility] DERMATOPATHOLOGY LABORATORY Pathology/Cytolo gy TISSUE SPECIMEN FROM SKIN / Unknown 04/07/2024 1:35 PM SELF PROPELLED DREDGE OPERATOR 04/08/2024 10:44 AM [facility] Giulia Nicholson MD LAB - PATHOLOGY/CYT OLOGY ORDERABLES DERMATOPATHOLOGY LABORATORY [facility] - Department of Dermatology [facility] Medicine [address] [place] [address], [address] [phone] from Last 3 Months Advance Directives * Full Code (Latest Code Status on File) Date Activated Date Inactivated Comments 10/26/2020 2:44 PM 10/27/2020 3:50 PM Care Teams Statistician Relationship Specialty [place] [address] [place] [address] PCP - General Internal Medicine 07/21/12 [place] [address] [place] [address] Orthopedic Surgery 07/21/12 [place] [address] [place] [id number] Orthopedic Surgery 10/24/14 [place] [address] [place] [address] Surgeon Orthopedic Surgery 08/25/20
--- OUTSIDE RECORDS SUMMARY | 2024-05-21 12:41 | XMS_ITS | Clinical Summary ---
Author Organization [facility] Address [address] [place] [address] Care Team Providers Care Gunner'S Mate Name Role Phone Shira Adan RN Unavailable Unavailable Shira Adan RN Unavailable Unavailable Shira Adan RN Unavailable Unavailable Monroe Reyes DO Primary Care Provider [phone] Allergies Active Allergy Reactions Criticality Noted Date [...] 05/13/2013 AVN (avascular necrosis of bone) 07/21/2012 Surgical History Surgery Date Site/Laterality Comments REPLACEMENT TOTAL KNEE BILATERAL 03/10/2020 - 03/09/2021 Bilateral Family History Medical History Relation Name Comments Cancer Brother Family history of malignant neoplasm - (Added by TW Conv) Heart disease Brother Family history of cardiac disorder - (Added by TW Conv) Diabetes Father Family history of diabetes mellitus - (Added by TW Conv) Heart disease Father Family history of cardiac disorder - (Added by TW Conv) Cancer Maternal Grandfather Family history of malignant neoplasm - Relation: Grandfather (Added by TW Conv) Alzheimer's disease Mother Family h istory of Alzheimer's disease - (Added by TW Conv) Diabetes Mother Family history of diabetes mellitus - (Added by TW Conv) Hypertension Mother Family history of hypertension - (Added by TW Conv) Arthritis Sister Family history of arthritis - (Added by TW Conv) Relation Name Status Comments Brother Father Maternal Grandfather Mother Sister Social History Tobacco Use Types Packs/Day Years Used Date Smoking Tobacco: Former Personal Safety Answer Date Recorded Getting School Help Needed Not on file 03/12 Comments Unknown Sex and Gender Information Value Date Recorded Sex Assigned at Not on file Legal Sex Female 6:43 PM COPYWRITER Gender Identity Female 11/14/2022 12:33 PM CDT Sexual Orientation Choose not to disclose 2022 12:33 PM CDT Obstetrics History Last Filed Vital Signs Vital Sign Reading [...] 06/30/2023 9:11 AM CDT Plan of Treatment Health Maintenance Due Date Last Done Comments Depression Screening 1943 Fall Risk Assessment 1945 Osteoporosis Screening-Bone Density Scan 1943 Hepatitis B Screening 1961 Well Visit 65+ 2008 DTaP/Tdap/Td Vaccine (1 - Tdap) 08/11/2021 2 Covid-19 Vaccine (2023-2 5 season) 2023 12/11/2021, 08/10/2021, 12/19/2020, Additional history exists Influenza Vaccine (#1) 2023 2, 12/04/2020, 11/17/2019, Additional history exists Pneumococcal vaccine 65+ Completed 018, 03/08/2016, 12/19/2014 Zoster Vaccine Completed 09/16/2017, 07/15/2017 Insurance AETNA MEDICARE AETNA MEDICARE AETNA MEDICARE Care Teams Gunner'S Mate Relationship Specialty Start Date End Date Monroe Reyes DO PCP - General Internal Medicine 10/22/22 Shira Adan, plant security guard 11/03/19 Shira Adan, plant security guard 12/06/19 Shira Adan, plant security guard 01/07/20
--- OUTSIDE RECORDS SUMMARY | 2024-05-21 12:41 | XMS_ITS | Clinical Summary ---
Author Organization [facility] Address [facility] [place] [address] Care Team Providers Care Edgerman Name Role Phone Evagentry Monroe Carol DO Primary Care Provider [phone] Allergies Active Allergy Reactions Criticality Noted Date Comments Ciprofloxacin Nausea and Vomiting 07/21/2012 Cyclobenzaprine Nausea and Vomiting 08/23/2019 Guaifenesin Unknown 08/23/2019 Meloxicam Nausea Only 08/23/2019 Nitrofurantoin Unknown Low 08/23/2019 Pseudoephedrine Tachycardia 07/21/2012 Quinolones Unknown Low 08/23/2019 Medications amLODIPine 5 MG tabletIndications: Hypertension Take 5 mg by mouth daily. Indications: High Blood Pressure Disorder 08/18/19 20 Active hydroCHLOROthiazid e 12.5 MG tabletIndications: Hypertension Take 12.5 mg by mouth every morning. Indications: High Blood Pressure Disorder 08/18/19 20 Active Multiple Vitamins-Minerals (CENTRUM SILVER 50+WOMEN) TabIndications:Oth er vitamin deficiencies Take 1 tablet by mouth daily. Indications: Other vitamin deficiencies 10/01/19 20 Active B Complex-C Tab tabletIndications: Vitamin B Deficiency Take 1 tablet by mouth daily. Indications: Vitamin B Deficiency 10/01/19 20 Active calcium carbonate 1250 (500 Ca) MG tabletIndications: Calcium Deficiency,takes a 600 mg tablet twice daily Take 1 tablet by mouth daily. Indications: Calcium Deficiency, takes a 600 mg tablet twice daily 10/01/19 20 Active vitamin C 1000 MG tabletIndications: Vitamin C Imbalance Take 1,000 mg by mouth daily. Indications: Excess or Deficiency of Vitamin C 10/01/19 Active glucosamine-chondr oitin 500-400 MG CapIndications:Ost eoarthritis Take 2 capsules by mouth daily. Indications: Joint Damage causing Pain and Loss of Function 10/01/19 Active polycarbophil 625 MG tabletIndications: Laxative Administration (Inactive) Take 1,250 mg by mouth daily. Indications: Laxative Administration 10/01/19 Active Multiple Vitamins-Minerals (PRESERVISION AREDS 2+MULTI VIT OR)Indications:Min eral Deficiency Take 1 tablet by mouth 2 (two) times a day. Indications: Mineral Deficiency 10/01/19 Active NON FORMULARYIndicatio ns:salon pas lidocaine plus -- roll on Indications: salon pas lidocaine plus -- roll on for arthritic pain 10/01/19 Active oxyCODONE-acetamin ophen (PERCOCET) 5-325 MG tabletIndications: Acute Pain < 7 Day Supply Take 1 tablet by mouth every 4 (four) hours as needed for Pain. Indications: Acute Pain < 7 Day Supply 20 tablet 09/30/19 20 Active ibuprofen 600 MG tabletIndications: Pain Take 600 mg by mouth every 6 (six) hours as needed for Pain. Indications: Pain 10/08/19 20 Active ondansetron 4 MG tablet TK 1 T PO Q 4 TO 6 H PRF NAUSEA OR VOM 11/26/19 20 Active Active Problems Problem Noted Date Diagnosed Date Status post total knee replacement 09/28/2019 Resolved Problems Problem Noted Date Diagnosed Date Resolved Date Osteoarthritis of right knee , unspecified osteoarthritis type 09/28/2019 03/29/2020 Primary osteoarthritis of both knees 08/23/2019 03/29/2020 Family History Medical History Relation Comments No Known Problems Brother Coronary artery disease Father Diabetes Father DEVELOPED LATER IN LIFE Heart Disease Father No Known Problems Maternal Aunt No Known Problems Maternal Grandfather No Known Problems Maternal Grandmother No Known Problems Maternal Uncle Alzheimers Mother Diabetes Mother DEVELOPED LATER IN LIFE Heart Disease Mother Kidney Disease Mother Cancer Other 1 colon Diabetes Other 2 No Known Problems Paternal Aunt No Known Problems Paternal Grandfather No Known Problems Paternal Grandmother No Known Problems Paternal Uncle No Known Problems Sister No Known Problems Son 1 No Known Problems Son 2 Relation Status Comments Brother Father (Age 70) of MS Maternal Aunt Maternal Grandfather Maternal Grandmother Maternal Uncle Mother (Age 84) of alzhei mers, kidney problems Other 1 Alive Other 2 Paternal Aunt Paternal Grandfather Paternal Grandmother Paternal Uncle Sister Son 1 Alive Son 2 Alive Social History Tobacco Use Types Packs/Day Years Used Date Smoking Tobacco: Former Cigarettes 1 7 0 03/10/1964 - 03/10/1971 Smokeless Tobacco: Never Tobacco Cessation:Counseling Given: No Alcohol Use Standard Drinks/Week Comments Yes 0 (1 standard drink = 0.6 oz pure alcohol) rarely has a glass of wine, less than 1 glass a month PHQ-2 Answer Date Recorded PHQ-2 Score - If the patient scores above 3, please move on to questions 3-9 0 12/15/2019 Comments No Sex and Gender Information Value Date Recorded Sex Assigned at Not on file Legal Sex Female 3:39 PM CDT Gender Identity Not on file Sexual Orientation Not on file Last Filed Vital Signs Vital Sign Reading Time Taken Comments Blood Pressure 116/68 03/29/2020 3:05 PM LAMP WIRER Pulse 91 03/29/2020 3:02 PM LAMP WIRER Temperature 36.3 C (97.3 F) 03/29/2020 3:02 PM LAMP WIRER Respiratory Rate 18 03/29/2020 3:02 PM LAMP WIRER Oxygen Saturation 95% 03/29/2020 3:02 PM LAMP WIRER Inhaled Oxygen Concentration - - Weight 88.8 kg (195 lb 11.2 oz) 03/29/2020 3:02 PM LAMP WIRER Height 165.1 cm (5' 5 ) 03/29/2020 3:02 PM LAMP WIRER Body Mass Index 32.57 03/29/2020 3:02 PM LAMP WIRER Plan of Treatment Health Maintenance Due Date Last Done Comments DTaP, Tdap and Td Vaccines (1 - Tdap) 1964 Annual Medicare Wellness Visit 2008 Dexa Scan (General) 2008 Pneumococcal Vaccine: 65+ Years (2 of 2 - PPSV23 or PCV20) 03/31/2018 03/31/2017, 12/19/2014 RSV Immunization or 60+ Years (1 - 1-dose 75+ series) 2018 COVID-19 Vaccine ( - 2023- season) 2023 Influenza Adult (#1) 2023 11/30/2018, 01/09/2017, 01/29/2016, Additional history exists Zoster Vaccines Completed 09/16/2017, 07/15/2017 Meningococcal B Vaccine Aged Out No l onger eligible based on patient's age to complete this topic Meningococcal Vaccine Aged Out No zaki osvaldo eligible based on patient's age to complete this topic RSV Immunizations Under 20 Months Aged Out No longer eligible based on patient's age to complete this topic Medical Devices Implanted Type Area Mold Carrier Device Identifier Shelf Expiration Date Model / Serial / Lot Cement Full Dose - [id number] Implanted:Qty: 2 on 09/28/2019 by Zuhair Gutiérrez MD at [facility] Cement Implant Right: Knee [employer] DIV [employer]ES[employer] MARI 03/09/2021 [id number] / / [id number] Persona The Personalized Knee System All Poly Patella Cemented Implanted:Qty: 1 on 09/28/2019 by Zuhair Gutiérrez MD at [facility] Knee Components Right: Knee [employer] 06/08/2027 [id number] 00-29 / / [id number] Persona The Personalized Knee System Natural Tibia Cemented Implanted:Qty: 1 on 09/28/2019 by Zuhair Gutiérrez MD at [facility] Knee Components Right: Knee [employer] 05/07/2029 [id number] 67-02 / / [id number] Persona The Personalized Knee System Femur Cemented Posterior Stabalized Implanted:Qty: 1 on 09/28/2019 by Zuhair Gutiérrez MD at [facility] Knee Components Right: Knee [employer] 03/09/2029 [id number] 62-02 / [id number] Persona The Personalized Knee System Articular Surface Fixed Bearing Posterior Stabalized Implanted:Qty: 1 on 09/28/2019 by Zuhair Gutiérrez MD at [facility] Knee Components Right: Knee [employer] 06/08/2021 [id number] 05-14 / [id number] Insurance MED REPLACE [facility] MEDICARE Advance Directives * Full Code (Latest Code Status on File) Date Activated Date Inactivated Comments 10/01/2019 9:10 AM * Full Code Date Activated Date Inactivated Comments 09/28/2019 6:44 PM 09/30/2019 4:13 PM Care Teams Edgerman Relationship Specialty Start Date End Date Monroe Reyes DO [address] [place] [address] PCP - General INTERNAL MEDICINE 07/23/19
--- OUTSIDE RECORDS SUMMARY | 2024-05-21 12:41 | XMS_ITS | Clinical Summary ---
Author Organization [facility] Address [address] [facility] [place] [address] Care Team Providers Care Radiologist Chief Of Breast Imaging Name Role Phone Deacon Sainz MD Unavailable [phone] Monroe Reyes DO Primary Care Provider [phone] Montserrat Garcia MD Unavailable [phone] Deacon Sainz MD Unavailable Source Comments [facility],non-owned Affiliates and Associated Physician Practices is amultiple site organization consisting of ambulatory clinics and hospital sitesin [place], [place], [place] and [place]. This disclosure is being madepursuant to the Care Everywhere program and may not contain all information available regarding this patient. Last updated 17.[facility] Allergies Active Allergy Reactions Criticality Noted Date [...] 07/21/2012 AVN (avascular necrosis of bone) 07/21/2012 Encounters Date Type Department Care Team Description 04/07/2024 Lab Requisition [facility] - DermPath Lab [address] [facility] [place] [phone] Giulia Nicholson MD from Last 3 Months Immunizations Name Administration Dates Next Due INFLUENZA [...] 10/26/2020 8:04 AM CDT Plan of Treatment Health Maintenance Due Date Last Done Comments BONE DENSITY TESTING 1945 DTAP/TDAP/TD VACCINES (1 - Tdap) 1962 PNEUMOCOCCAL VACCINE 50+ (1 of 1 - PCV) 1993 ZOSTER VACCINE (1 of 2) 1993 Respiratory Syncytial Virus (RSV) Vaccine Pt: or over 60 yrs (1 - 1-dose 75+ series) 2018 COVID-19 VACCINE (3 - 2023-2 5 season) 2023 05/23/2020, 05/01/2020 INFLUENZA VACCINE (#1) 2023 , 11/17/2019, 11/30/2018 DEPRESSION SCREENING 03/10/2024 MEDICARE AWV CALENDAR YEAR 2024 HEPATITIS B VACCINE Aged Out No longe r eligible based on patient's age to complete this topic HIB VACCINE Aged Out No longer eligi ble based on patient's age to complete this topic HPV VACCINE Aged Out No longer eligi ble based on patient's age to complete this topic MENINGOCOCCAL (Group B) VACCINE SHARED DECISION-MAKING Aged Out No longer eligible based on patient's age to complete this topic MENINGOCOCCAL GROUPS A/C/Y/W VACCINE Aged Out No longer eligible b ased on patient's age to complete this topic Medical Devices Implanted Type Area Platinum And Palladium Kettle Tender Device Identifier Shelf Expiration Date Model / Serial / Lot Cmnt Bone Djo Srg Cblt 40gm Hvisc Strl Implanted:Qty: 1 on 10/26/2020 by Deacon Sainz MD at [facility] Left: Knee [employer] 04/11/2022 600-15-000 / / [id number] Cmpnt Ptlr 28mm 1 Pg Wire Ascnt Arcm Kn Implanted:Qty: 1 on 10/26/2020 by Deacon Sainz MD at [facility] Left: Knee [employer] 07/28/2025 [id number] / / [id number] Cmpnt Fem Kn Lt Cr Cmnt Prm Vngrd Intlk Implanted:Qty: 1 on 10/26/2020 by Deacon Sainz MD at [facility] Left: Knee [employer] 05/17/2030 [id number] / / [id number] Tray Tib 75mm Kn Cocr I Beam Implanted:Qty: 1 on 10/26/2020 by Deacon Sainz MD at [facility] Left: Knee [employer] 08/15/2030 [id number] / / [id number] Brng 90fll05wh Vngrd Arcm Kn Ant Stab Implanted:Qty: 1 on 10/26/2020 by Deacon Sainz MD at [facility] Left: Knee [employer] 08/08/2025 [id number] / / [id number] Procedures Procedure Name Priority Date/Time Associated Diagnosis Comments DERMATOPATHOLOGY Routine 04/07/2024 1:35 PM ETIOLOGIST from Last 3 Months Results * DERMATOPATHOLOGY (04/07/2024 1:35 PM ETIOLOGIST) Case Report Dermatopathology Report Case: [id number] Authorizing Provider: Giulia Nicholson MD Collected: 04/07/2024 01:35 PM Ordering Location: [facility] - Received: 04/08/2024 10:44 AM DermPath Lab Pathologist: An Woods MD Specimen: Skin, right upper eyebrow 6:09 PM ETIOLOGIST DERMATOPATHOLOGY LABORATORY Final Diagnosis Specimen A. 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 The specimen consists of a shave biopsy measuring 6x4x1 mm. Jar 0. 6:09 PM ETIOLOGIST DERMATOPATHOLOGY LABORATORY Microscopic Description Specimen A. SKIN, right upper eyebrow: The epidermis shows parakeratosis, full thickness disorderly maturation of keratinocytes, mitoses at different levels, and dyskeratotic cells. 6:09 PM ETIOLOGIST DERMATOPATHOLOGY LABORATORY Disclaimer An external and internal positive and negative controls are appropriate for the histochemical, immunohistochemical and immunofluorescence stain(s) in this case (if any), except where stated explicitly. The performance characteristics of the stain(s) cited in this report were developed and its performance characteristic determined by the Dermatopathology Laboratory at [facility], directed by Dr. Adams Moody. These tests need not be, and therefore are not, approved by the [place] Food and Drug Administration. The tests are used for clinical purposes. Billing Codes Specimen Charges Stain Charges 06352 1 5 6:09 PM ETIOLOGIST DERMATOPATHOLOGY LABORATORY Embedded Images 5 6:09 PM ETIOLOGIST DERMATOPATHOLOGY LABORATORY Pathology/Cytolo gy TISSUE SPECIMEN FROM SKIN / Unknown 04/07/2024 1:35 PM ETIOLOGIST 04/08/2024 10:44 AM ETIOLOGIST Giulia Nicholson MD LAB - PATHOLOGY/CYT OLOGY ORDERABLES DERMATOPATHOLOGY LABORATORY [facility] - Department of Dermatology [address], [address] [phone] from Last 3 Months Advance Directives * Full Code (Latest Code Status on File) Date Activated Date Inactivated Comments 10/26/2020 2:44 PM 10/27/2020 3:50 PM Care Teams Radiologist Chief Of Breast Imaging Relationship Specialty [place] [address] [place] [address] PCP - General Internal Medicine 07/21/12 [place] [address] [place] [address] [place] [address] Orthopedic Surgery 07/21/12 [place] [address] [place] [address] Orthopedic Surgery 10/24/14 [place] [address] [place] [address] Surgeon Orthopedic Surgery 08/25/20
== END 2024-05-21 12:39 | disposition home or self-care (01) ==
LOC: ANHAUDASC 12:39
PROVIDERS: PCP Internal Medicine; Visit Provider Otolaryngology Otolaryngology/Facial Plastic Surgery
DX: H90.3 Sensorineural hearing loss, bilateral (principal)
CPT/HCPCS: 92557; 92567

== ENCOUNTER 2024-06-18 09:54 | Outpatient (CLI) | payer MEDICARE, SELFPAY ==
--- NOTE | ~2024-06-18 | MM_ITS ---
EXAMINATION: MM screening joshua LT w justine HISTORY: Screening TECHNIQUE: Craniocaudal and mediolateral oblique 3-D tomosynthesis images were obtained and synthetic 2-D images were generated. CAD analysis was submitted and interpreted. COMPARISON: Comparison to multiple prior studies sequentially, with oldest reviewed study dated 06/26. BREAST PARENCHYMAL COMPOSITION: Not Dense: The breasts are almost entirely fatty. FINDINGS: There is no evidence of suspicious mass, calcification, or architectural distortion to sugg est malignancy in the left breast. There has been no suspicious interval change. IMPRESSION: 1. No mammographic evidence of malignancy. 2. Recommend routine screening mammography in one year. BI-RADS Category 1: Negative Reviewed, dictated and finalized at location A.
--- OUTSIDE RECORDS SUMMARY | 2024-06-18 10:29 | XMS_ITS | Clinical Summary ---
Author Organization [facility] Address [address] [place] [address] Care Team Providers Care Nail Making Machine Setter Name Role Phone Deacon Sainz MD Unavailable [phone] Monroe Reyes DO Primary Care Provider [phone] Montserrat Garcia MD Unavailable [phone] Deacon Sainz MD Unavailable Source Comments [facility],non-owned Affiliates and Associated Physician Practices is amultiple site organization consisting of ambulatory clinics and hospital sitesin [place], [place], [place] and [place]. This disclosure is being madepursuant to the Care Everywhere program and may not contain all information available regarding this patient. Last updated 17.[facility] Allergies Active Allergy Reactions Criticality Noted Date [...] Department Care Team Description 04/07/2024 Lab Requisition [facility] - DermPath Lab [address] [facility] [place] [phone] Giulia Nicholson MD from Last 3 Months [...] - 2023-2 5 season) 2023 05/23/2020, 05/01/2020 DEPRESSION SCREENING 03/10/2024 MEDICARE AWV CALENDAR YEAR 2024 INFLUENZA VACCINE (Season Ended) 2024 12/04/2020, 11/17/2019, 11/30/2018 HEPATITIS B VACCINE Aged Out No longe [...] this topic Medical Devices Implanted Type Area Medical Lab Scientist Device Identifier Shelf Expiration Date Model / Serial / Lot Cmnt Bone Djo Srg Cblt 40gm Hvisc Strl Implanted:Qty: 1 on 10/26/2020 by Deacon Sainz MD at [facility] Left: Knee [employer] 04/11/2022 600-15-000 / / [id number] Cmpnt Ptlr 28mm 1 Pg Wire Ascnt Arcm Kn Implanted:Qty: 1 on 10/26/2020 by Deacon Sainz MD at [facility] Left: Knee [employer] 07/28/2025 [id number] / / [id number] Cmpnt Fem Kn Lt Cr Cmnt Prm Vngrd Intlk Implanted:Qty: 1 on 10/26/2020 by Deacon Sainz MD at [facility] Left: Knee [employer] 05/17/2030 [id number] / / [id number] Tray Tib 75mm Kn Cocr I Beam Implanted:Qty: 1 on 10/26/2020 by Deacon Sainz MD at [facility] Left: Knee [employer] 08/15/2030 [id number] / / [id number] Brng [id number] Vngrd Arcm Kn Ant Stab Implanted:Qty: 1 on 10/26/2020 by Deacon Sainz MD at [facility] Left: Knee [employer] 08/08/2025 [id number] / / [id number] Procedures Procedure Name Priority Date/Time Associated Diagnosis Comments DERMATOPATHOLOGY Routine 04/07/2024 1:35 PM FISHER LAMPARA NET from Last 3 Months Results * DERMATOPATHOLOGY (04/07/2024 1:35 PM FISHER LAMPARA NET) Case Report Dermatopathology Report Case: [id number] Authorizing Provider: Giulia Nicholson MD Collected: 04/07/2024 01:35 PM Ordering Location: [facility] - Received: 04/08/2024 10:44 AM DermPath Lab Pathologist: An Woods MD Specimen: Skin, right upper eyebrow 6:09 PM [facility] DERMATOPATHOLOGY LABORATORY Final Diagnosis Specimen A. 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 The specimen consists of a shave biopsy measuring 6x4x1 mm. Jar 0. 6:09 PM [facility] DERMATOPATHOLOGY LABORATORY Microscopic Description Specimen A. SKIN, right upper eyebrow: The epidermis shows parakeratosis, full thickness disorderly maturation of keratinocytes, mitoses at different levels, and dyskeratotic cells. 6:09 PM [facility] DERMATOPATHOLOGY LABORATORY Disclaimer An external and internal positive and negative controls are appropriate for the histochemical, immunohistochemical and immunofluorescence stain(s) in this case (if any), except where stated explicitly. The performance characteristics of the stain(s) cited in this report were developed and its performance characteristic determined by the Dermatopathology Laboratory at [facility], directed by Dr. Adams Moody. These tests need not be, and therefore are not, approved by the [place] Food and Drug Administration. The tests are used for clinical purposes. Billing Codes Specimen Charges Stain Charges 86711 1 5 6:09 PM [facility] DERMATOPATHOLOGY LABORATORY Embedded Images 5 6:09 PM [facility] DERMATOPATHOLOGY LABORATORY Pathology/Cytolo gy TISSUE SPECIMEN FROM SKIN / Unknown 04/07/2024 1:35 PM FISHER LAMPARA NET 04/08/2024 10:44 AM FISHER LAMPAR[facility] NET Giulia Nicholson MD LAB - PATHOLOGY/CYT OLOGY ORDERABLES DERMATOPATHOLOGY LABORATORY [facility] - Department of Dermatology [address], [address] [phone] from Last 3 Months Advance Directives * Full Code (Latest Code Status on File) Date Activated Date Inactivated Comments 10/26/2020 2:44 PM 10/27/2020 3:50 PM Care Teams Nail Making Machine Setter Relationship Specialty [place] [address] [place] [address] PCP - General Internal Medicine 07/21/12 [place] [address] [place] [address] [place] [address] Orthopedic Surgery 07/21/12 [place] [address] [place] [address] Orthopedic Surgery 10/24/14 [place] [address] [place] [address] Surgeon Orthopedic Surgery 08/25/20
--- OUTSIDE RECORDS SUMMARY | 2024-06-18 10:29 | XMS_ITS | Encounter Summary ---
Author Organization [facility] Address [address] [place] [address] Care Team Providers Care Eligibility Examiner Name Role Phone Deacon Sainz MD Unavailable Monroe Reyes DO Primary Care Provider Montserrat Garcia MD Unavailable Deacon Sainz MD Unavailable Encounter Details Date Type Department Care Team (Late st Contact Info) Description 03/13/2023 Lab Requisition [facility] - DermPath Lab [address] [facility], [facility] [place] [id number] Christen Kim DO [address] [facility] [address] [place] [address] Social History Tobacco Use Types Packs/Day Years [...] Diagnosis Comments DERMATOPATHOLOGY Routine 03/13/2023 2:27 PM BATCH RECORDS CLERK documented in this encounter Results * DERMATOPATHOLOGY (03/13/2023 2:27 PM BATCH RECORDS CLERK) Case Report Dermatopathology Report Case: [id number] Authorizing Provider: Christen Kim DO Collected: 03/13/2023 02:27 PM Ordering Location: [facility] DermPath Lab Received: 03/14/2023 02:01 PM Pathologist: An Woods MD Specimens: A) - Skin, right chest B) - Skin, right mid arm 12:54 PM [facility] DERMATOPATHOLOGY LABORATORY Final Diagnosis Specimen A. SKIN, right chest: LICHEN PLANUS-LIKE KERATOSIS (BENIGN LICHENOID KERATOSIS) (L82.1) Specimen B. SKIN, right mid arm: HYPERPLASTIC (HYPERTROPHIC) ACTINIC KERATOSIS (L57.0) 12:54 PM [facility] DERMATOPATHOLOGY LABORATORY Clinical History A: R/O BCC B: SK R/O Atypia 12:54 PM [facility] DERMATOPATHOLOGY LABORATORY Gross Description Specimen A: Received [...] measuring 11x9x1 mm. Jar 0. 12:54 PM [facility] DERMATOPATHOLOGY LABORATORY Microscopic Description Specimen A. SKIN, right chest: The epidermis is mildly acanthotic. There is a lichenoid infiltrate with vacuolar changes of basilar keratinocytes and scattered necrotic keratinocytes. Specimen B. SKIN, right mid arm: There is hyperkeratosis alternating with parakeratosis. There is epidermal hyperplasia with disorderly maturation of keratinocytes with nuclear pleomorphism confined to the lower half of the epidermis. 12:54 PM [facility] DERMATOPATHOLOGY LABORATORY Disclaimer An external and internal positive and negative controls are appropriate for the histochemical, immunohistochemical and immunofluorescence stain(s) in this case (if any), except where stated explicitly. The performance characteristics of the stain(s) cited in this report were developed and its performance characteristic determined by the Dermatopathology Laboratory at [facility], directed by Dr. Adams Moody. These tests need not be, and therefore are not, approved by the [place] Food and Drug Administration. The tests are used for clinical purposes. Billing Codes Specimen Charges Stain Charges 28536 55852 1 1 4 12:54 PM BATCH RECORDS CLERK DERMATOPATHOLOGY LABORATORY Embedded Images 12:54 PM BATCH RECORDS CLERK DERMATOPATHOLOGY LABORATORY Pathology/Cytology TISSUE SPECIMEN FROM SKIN / Unknown 03/13/2023 2:27 PM BATCH RECORDS CLERK 03/14/2023 2:01 PM BATCH RECORDS CLERK Miscellaneous samples (specimen) TISSUE SPECIMEN FROM SKIN / Unknown 03/13/2023 2:27 PM BATCH RECORDS CLERK 03/14/2023 2:01 PM BATCH RECORDS CLERK Christen Kim DO LAB - PATHOLOGY/C YTOLOGY ORDERABLES DERMATOPATHOLOGY LABORATORY [facility] - Department of Dermatology [facility] Medicine [address] [place] [address], [address] [phone] documented in this encounter Visit Diagnoses Not on filedocumented in this encounter Care Teams Eligibility Examiner Relationship Specialty [place] [address] [place] [address] PCP - General Internal Medicine 07/21/12 [place] [address] [place] [address] Orthopedic Surgery 07/21/12 [place] [address] [place] [address] Orthopedic Surgery 10/24/14 [place] [address] [place] [address] Surgeon Orthopedic Surgery 08/25/20 documented as of this encounter
--- OUTSIDE RECORDS SUMMARY | 2024-06-18 10:29 | XMS_ITS | Encounter Summary ---
Author Organization [facility] Address [address] [facility] [address] [place] [address] Care Team Providers Care Textiles Printer Name Role Phone Deacon Sainz MD Unavailable Monroe Reyes DO Primary Care Provider [phone] Montserrat Garcia MD Unavailable [phone] Deacon Sainz MD Unavailable [phone] Encounter Details Date Type Department Care Team (Late st Contact Info) Description 04/07/2024 Lab Requisition [facility] - DermPath Lab [address] [facility], [place] [address] Giulia Nicholson MD [address] [facility] [address] [place] [address] Social History Tobacco Use Types Packs/Day Years [...] Diagnosis Comments DERMATOPATHOLOGY Routine 04/07/2024 1:35 PM FEDERAL AGENT documented in this encounter Results * DERMATOPATHOLOGY (04/07/2024 1:35 PM FEDERAL AGENT) Case Report Dermatopathology Report Case: [id number] Authorizing Provider: Giulia Nicholson MD Collected: 04/07/2024 01:35 PM Ordering Location: [facility] - Received: 04/08/2024 10:44 AM DermPath Lab Pathologist: An Woods MD Specimen: Skin, right upper eyebrow 6:09 PM [facility] DERMATOPATHOLOGY LABORATORY Final Diagnosis Specimen A. 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 The specimen consists of a shave biopsy measuring 6x4x1 mm. Jar 0. 6:09 PM [facility] DERMATOPATHOLOGY LABORATORY Microscopic Description Specimen A. SKIN, right upper eyebrow: The epidermis shows parakeratosis, full thickness disorderly maturation of keratinocytes, mitoses at different levels, and dyskeratotic cells. 6:09 PM [facility] DERMATOPATHOLOGY LABORATORY Disclaimer An external and internal positive and negative controls are appropriate for the histochemical, immunohistochemical and immunofluorescence stain(s) in this case (if any), except where stated explicitly. The performance characteristics of the stain(s) cited in this report were developed and its performance characteristic determined by the Dermatopathology Laboratory at [facility], directed by Dr. Adams Moody. These tests need not be, and therefore are not, approved by the [place] Food and Drug Administration. The tests are used for clinical purposes. Billing Codes Specimen Charges Stain Charges 07969 1 6:09 PM [facility] DERMATOPATHOLOGY LABORATORY Embedded Images 6:09 PM [facility] DERMATOPATHOLOGY LABORATORY Pathology/Cytolo gy TISSUE SPECIMEN FROM SKIN / Unknown 04/07/2024 1:35 PM FEDERAL AGENT 04/08/2024 10:44 AM FEDERAL AGENT Giulia Nicholson MD LAB - PATHOLOGY/CYT OLOGY ORDERABLES DERMATOPATHOLOGY LABORATORY [facility] - Department of Dermatology [address], [address] [phone] documented in this encounter Visit Diagnoses Not on filedocumented in this encounter Care Teams Textiles Printer Relationship Specialty [place] [address] [place] [address] PCP - General Internal Medicine 07/21/12 [place] [address] [place] [address] Orthopedic Surgery 07/21/12 [place] [address] [place] [address] Orthopedic Surgery 10/24/14 [place] [address] [place] [address] Surgeon Orthopedic Surgery 08/25/20 documented as of this encounter
--- OUTSIDE RECORDS SUMMARY | 2024-06-18 10:29 | XMS_ITS | Clinical Summary ---
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
--- OUTSIDE RECORDS SUMMARY | 2024-06-18 10:29 | XMS_ITS | Referral Summary ---
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
--- OUTSIDE RECORDS SUMMARY | 2024-06-18 10:29 | XMS_ITS | Clinical Summary ---
Author Organization [facility] Address [facility] [place] [address] Care Team Providers Care Stock Chaser Name Role Phone Evagentry Monroe Carol DO Primary Care Provider [phone] Allergies Active Allergy Reactions Criticality Noted Date [...] < 7 Day Supply 20 tablet 09/30/19 Active ibuprofen 600 MG tabletIndications: Pain Take 600 mg by mouth every 6 (six) hours as needed for Pain. Indications: Pain 10/08/19 Active ondansetron 4 MG tablet TK 1 T PO Q 4 TO 6 H PRF NAUSEA OR VOM 11/26/19 20 Active Active Problems Problem Noted Date Diagnosed Date Status post total knee replacement 09/28/2019 Resolved Problems Problem Noted Date Diagnosed Date Resolved Date Osteoarthritis of right knee , unspecified osteoarthritis type 09/28/2019 03/29/2020 Primary osteoarthritis of both knees 08/23/2019 03/29/2020 Encounters Date Type Department Care Team Description 05/24/2024 Telephone [facility] Orthopedic & Sports Medicine - [place] [address] [place] [address] Zuhair Gutiérrez MD Error from Last 3 Months Family History Medical History Relation Comments No [...] Status Comments Brother Father (Age 70) of [place] Maternal Aunt Maternal Grandfather Maternal Grandmother Maternal [...] Comments Blood Pressure 116/68 03/29/2020 3:05 PM HAT BRIM AND CROWN LAMINATING OPERATOR Pulse 91 03/29/2020 3:02 PM HAT BRIM AND CROWN LAMINATING OPERATOR Temperature 36.3 C (97.3 F) 03/29/2020 3:02 PM HAT BRIM AND CROWN LAMINATING OPERATOR Respiratory Rate 18 03/29/2020 3:02 PM HAT BRIM AND CROWN LAMINATING OPERATOR Oxygen Saturation 95% 03/29/2020 3:02 PM HAT BRIM AND CROWN LAMINATING OPERATOR Inhaled Oxygen Concentration - - Weight 88.8 kg (195 lb 11.2 oz) 03/29/2020 3:02 PM HAT BRIM AND CROWN LAMINATING OPERATOR Height 165.1 cm (5' 5 ) 03/29/2020 3:02 PM HAT BRIM AND CROWN LAMINATING OPERATOR Body Mass Index 32.57 03/29/2020 3:02 PM HAT BRIM AND CROWN LAMINATING OPERATOR Plan of Treatment Health Maintenance Due Date Last Done Comments DTaP, Tdap and Td Vaccines ( 1 - Tdap) 1964 Annual Medicare Wellness Visit 2008 Dexa Scan (General) 2008 Pneumococcal Vaccine: 65+ Years (2 of 2 - PPSV23 or PCV20) 03/31/2018 03/31/2017, 12/19/2014 RSV Immunization or 60+ Years (1 - 1-dose 75+ series) 2018 COVID-19 Vaccine (2023-2 5 season) 2023 PHQ-2 (Physician [place]) 03/10/2024 Zoster Vaccines Completed 09/16/2017, 07/15/2017 Meningococcal B Vaccine Aged Out No l onger eligible based on patient's age to complete this topic Meningococcal Vaccine Aged Out No zaki osvaldo eligible based on patient's age to complete this topic RSV Immunizations Under 20 Months Aged Out No longer eligible b ased on patient's age to complete this topic Medical Devices Implanted Type Area Staple Shear Operator Device Identifier Shelf Expiration Date Model / Serial / Lot Cement Full Dose - [id number] Implanted:Qty: 2 on 09/28/2019 by Zuhair Gutiérrez MD at [facility] Cement Implant Right: Knee [employer] MAR[employer] 03/09/2021 [id number] / / [id number] Persona The Personalized Knee System All Poly Patella Cemented Implanted:Qty: 1 on 09/28/2019 by Zuhair Gutiérrez MD at [facility] Knee Components Right: Knee [employer] 06/08/2027 [id number]- [id number] Persona The Personalized Knee System Natural Tibia Cemented Implanted:Qty: 1 on 09/28/2019 by Zuhair Gutiérrez MD at [facility] Knee Components Right: Knee [employer] 05/07/2029 [id number]- [id number] Persona The Personalized Knee System Femur Cemented Posterior Stabalized Implanted:Qty: 1 on 09/28/2019 by Zuhair Gutiérrez MD at [facility] Knee Components Right: Knee [employer] 03/09/2029 [id number]- [id number] Persona The Personalized Knee System Articular Surface Fixed Bearing Posterior Stabalized Implanted:Qty: 1 on 09/28/2019 by Zuhair Gutiérrez MD at [facility] Knee Components Right: Knee [employer] 06/08/2021 [id number] [id number] Insurance MED REPLACE [facility] MEDICARE Advance Directives * Full Code (Latest Code Status on File) Date Activated Date Inactivated Comments 10/01/2019 9:10 AM * Full Code Date Activated Date Inactivated Comments 09/28/2019 6:44 PM 09/30/2019 4:13 PM Care Teams Stock Chaser Relationship Specialty Start Date End Date Monroe Reyes DO [address] [facility] [address] [place] [address] PCP - General INTERNAL MEDICINE 07/23/19
--- OUTSIDE RECORDS SUMMARY | 2024-06-18 10:29 | XMS_ITS | Clinical Summary ---
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
== END 2024-06-18 09:55 | disposition home or self-care (01) ==
PROVIDERS: PCP Internal Medicine; Visit Provider Obstetrics & Gynecology
DX: Z12.31 Encounter for screening mammogram for malignant neoplasm of breast (principal)
CPT/HCPCS: 77063; 77067

== ENCOUNTER 2024-09-15 14:33 | Outpatient (CLI) | payer MEDICARE, SELFPAY ==
--- NOTE | ~2024-09-15 | XR_ITS ---
EXAM/ PROCEDURE: XR foot RT 2V - 09/15/2024 14:36 CDT HISTORY: 79 years old Female with Pain dorsal bilat feet onset x >1 yr w/o injury COMPARISON: None available TECHNIQUE: Three view(s) FINDINGS/ IMPRESSION: There are no fractures or dislocations.Joint space narrowing, subchondral sclerosis, subchondral cyst formation and osteophyte formation, compatible with moderate to severe osteoarthritis. Reviewed, dictated and finalized at location A.
--- NOTE | ~2024-09-15 | XR_ITS ---
EXAM/ PROCEDURE: XR foot LT 2V - 09/15/2024 14:36 CDT HISTORY: 79 years old Female with Pain dorsal bilat feet onset x >1 yr w/o injury COMPARISON: None available TECHNIQUE: Two view(s) FINDINGS/ IMPRESSION: There are no fractures or dislocations.Joint space narrowing, subchondral sclerosis, subchondral cyst formation and osteophyte formation, compatible with mild osteoarthritis. Calcaneal enthesopathy. Reviewed, dictated and finalized at location A.
== END 2024-09-15 14:34 | disposition home or self-care (01) ==
LOC: GOSHIMG 14:33
PROVIDERS: PCP Nurse Practitioner; Visit Provider Nurse Practitioner
DX: M79.671 Pain in right foot (principal); M79.672 Pain in left foot
CPT/HCPCS: 73620

== ENCOUNTER 2024-09-23 13:42 | Outpatient (CLI) | payer MEDICARE, SELFPAY ==
--- NOTE | ~2024-09-23 | US_ITS ---
US arterial ankle brachial ind INDICATION: Peripheral vascular disease TECHNIQUE: Segmental pressures and plethysmographic and Doppler waveforms of the brachial and lower e xtremity arteries were obtained. COMPARISON: None. FINDINGS: Left brachial artery pressures of 1 33 mmHg. Right brachial artery pressure not performed due to prio r mastectomy. There is biphasic flow bilaterally in the posterior tibial and dorsalis pedis arteries. The right ankle-brachial index (NATASHA) is 1.09 (normal >= 0.9-1.0). The right great toe-brachial index (TBI) is 0.56 (normal >= 0.60). The left NATASHA is 1.12. The left TBI is 0.59. IMPRESSION: 1. Normal ankle-brachial indices. 2: Mildly decreased toe brachial indices consistent with peripheral arterial disease. Reviewed, dictated and finalized at location B. IMPRESSION: 1. Normal ankle-brachial indices. 2: Mildly decreased toe brachial indices consistent with peripheral arterial d isease.
--- OUTSIDE RECORDS SUMMARY | 2024-09-23 13:47 | XMS_ITS | Referral Summary ---
Author Organization [facility] Address [address] [place] [address] Care Team Providers Care Boiler Out Name Role Phone Shira Adan RN Unavailable Unavailable Shira Adan RN Unavailable Unavailable Shira Adan RN Unavailable Unavailable Monroe Reyes DO Primary Care Provider [phone] Encounters Date Type Department Care Team Description 09/13/2024 Telephone [facility] [address] [address] Shoshana Villanueva MD 09/08/2024 11:45 AM CDT Office Visit [facility] Pulmonary [address] [address] Shoshana Villanueva MD Obesity (BMI 35.0-39.9 without comorbidity) (Primary Dx); SOB (shortness of breath); Primary hypertension 08/18/2024 7:35 AM CDT - 08/18/2024 11:59 PM CDT Hospital Encounter [facility] [address] [place] [address] Discharge Disposition: Discharge to home or self care 08/18/2024 7:35 AM CDT - 08/18/2024 11:59 PM CDT Hospital Encounter [facility] [address] [place] [address] Shortness of breath Discharge Disposition: Discharge to home or self care 08/18/2024 7:35 AM CDT - 08/18/2024 11:59 PM CDT Hospital Encounter [facility] [address] [place] [address] Shortness of breath Discharge Disposition: Discharge to home or self care 08/13/2024 12:51 PM CDT - 08/13/2024 11:59 PM CDT Hospital Encounter 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 [employer] Gender Identity Female 11/14/2022 12:33 PM CDT Sexual Orientation Choose not to disclose 2022 12:33 PM CDT Last Filed Vital Signs Vital Sign Reading Time Taken Comments Blood Pressure 128/72 09/08/2024 11:29 AM CDT Pulse 88 09/08/2024 11:29 AM CDT Temperature 36.4 C (97.6 F) 09/08/2024 11:29 AM CDT Respiratory Rate 18 09/08/2024 11:29 AM CDT Oxygen Saturation 98% 09/08/2024 11:29 AM CDT Inhaled Oxygen Concentration - - Weight 90.3 kg (199 lb) 09/08/2024 11:29 AM CDT Height 162.6 cm (5' 4) 09/08/2024 11:29 AM CDT Body Mass Index 34.16 09/08/2024 11:29 AM CDT Plan of Treatment Not on file Procedures Procedure Name Priority Date/Time Associated Diagnosis Comments STRESS TEST FOR DUAL READ Schedule Routine, Read Routine (OP Routine) 08/18/2024 10:48 AM CDT Shortness of breath NM MPI SPECT (REST AND/OR STRESS) MULTIPLE STUDIES Schedule Routine, Read Routine (OP Routine) 08/18/2024 10:48 AM CDT Shortness of breath TRANSTHORACIC ECHO (TTE) COMPLETE W DOPPLER/CF WO CONTRAST Routine 08/13/2024 1:42 PM CDT Shortness of breath from Last 3 Months Results * NM MPI Spect (Rest And Stress) Multiple Studies (08/18/2024 10:48 AM CDT) Anatomical Region Laterality Modality Body N/A Nuclear Medicine Narrative 08/18/2024 4:57 PM CDT Patient Id: Massiel Case is a 79 y.o. female. MR#: [id number] Study date: 08/18/2024 Report of the nuclear portion of the stress test Please see separate dictation by Dr. Wyatt for indications and stress portion MPI report: Patient received 11 mCi of Myoview at rest. Patient received 33 mCi of Myoview at stress Quality of the study: Good. No motion correction performed. No prone images were obtained. Findings: Left ventricular cavity appears to be normal at both rest and stress visually. SPECT rest and stress images reveal normal perfusion. Gated images demonstrates normal wall motion. Calculated ejection fraction 79%. TID ratio is 1.31 which is slightly increased. Impressions: Increased transient ischemic dilatation ratio suggestive of multivessel, left main or artifact. Suggest clinical correlation. No reversible ischemia or infarct noted Normal left ventricular wall motion Calculated ejection fraction is 79%. Copy to Monroe Reyes, DO 08/18/2024 Michaela Smith PRODUCT ASSURANCE ENGINEER IMG NM PROCEDURES Final Resu lt * Stress Test for Myocardial Perfusion (08/18/2024 10:48 AM CDT) Anatomical Region Laterality Modality Nuclear Medicine Narrative 08/18/2024 5:40 PM CDT LEXISCAN NUCLEAR STRESS TEST CLINICAL INDICATION: Dyspnea on exertion STUDY DESCRIPTION: After reviewing benefits, risks and alternatives, and obtaining informed consent, patient was infused with regadenoson (Lexiscan) per protocol. This was followed by technetium Tc99m tetrofosmin (Myoview) and a fluid bolus. Resting heart rate was 73 bpm. The highest heart rate was 91 bpm. Heart rate at the end of the test was 88 bpm. Initial blood pressure 171/84 mmHg. The maximum-excursion blood pressure was 148/79 mmHg. Blood pressure at the end of the test was 159/74 mmHg. Patient experienced expected Lexiscan side effects. Test was terminated after protocol was complete. Test supervised and interpreted by Mariano Wyatt M.D. EKG FINDINGS: Resting ECG shows sinus rhythm 73 beats per minute, normal ECG. There were no ECG changes diagnostic of ischemia post-Lexiscan infusion. There were no clinically significant Lexiscan-induced arrhythmias CONCLUSION: Hypertension, as documented above The ECG portion of Lexiscan Myoview is negative for induced ischemia. No clinically significant Lexiscan-induced arrhythmias were noted. The nuclear imaging portion of this test will be reported separately Michaela Smith NP CV STRESS PROCEDURES Final R esult * TRANSTHORACIC ECHO (TTE) COMPLETE W DOPPLER/CF WO CONTRAST (08/13/2024 1:42 PM CDT) EF Mod BP 57 % CONS SCIMAGE Anatomical Region Laterality Modality Ultrasound 08/13/2024 1:02 PM CDT Narrative 08/16/2024 4:24 PM CDT Transthoracic Echocardiographic Report Patient Name: MASSIEL CASE J : 1945 (79y 3m) Gender: F Study Date: 08/13/2024 01:02:05 PM Ht(Inch): 64 Wt(Lb): 192.99 BSA: 1.99 Histological Illustrator: RAJANI Harris Order Provider: MICHAELA SMITH Heart Rate: 83 BMI: 33.12 BP: 138 / 76 Ref Provider: MICHAELA SMITH PROCEDURES: Echocardiographic Report: ([id number]) Transthoracic complete echo, 2D, spectral and tissue Doppler, color flow Doppler, M-mode. Technically difficult study due to: Technically difficult study due to Body Habitus. INDICATIONS: R06.02 Shortness of breath. FINDINGS: Left Ventricle: Normal left ventricular cavity size. Normal Left ventricular wall thickness. Normal left ventricular systolic function. The Ejection Fraction (Johns's) is measured at 57 %. Diastolic Function Left ventricular diastolic parameters are consistent with Grade I diastolic dysfunction (normal LA pressure). Regional Wall Motion: There are no regional wall motion abnormalities. Right Ventricle: Normal right ventricular size. Normal right ventricular systolic function. Left Atrium: Mildly dilated left atrium. Right Atrium: The right atrium is normal in size. Atrial Septum: No shunt by color Doppler. Mitral Valve: Normal mitral valve leaflet structure. No mitral regurgitation seen. No mitral valve stenosis. Aortic Valve: Trileaflet aortic valve. No aortic regurgitation seen. No aortic valve stenosis. The mean transaortic gradient is 4 mmHg. Tricuspid Valve: The tricuspid valve demonstrates normal leaflet structure. There is mild tricuspid regurgitation. Normal estimated pulmonary artery systolic pressure. No tricuspid valve stenosis. Pulmonic Valve: No evidence of pulmonic regurgitation. Pericardium: No pericardial effusion noted. Aorta: Normal aortic root. The aortic Sinus is normal in size. IVC: IVC is normal in size. CONCLUSIONS: 1. Normal left ventricular systolic function. The Ejection Fraction (Johns's) is measured at 57 %. Diastolic Function Left ventricular diastolic parameters are consistent with Grade I diastolic dysfunction (normal LA pressure). 2. There is mild tricuspid regurgitation. MEASUREMENTS: 2D/MM Value Range Doppler Value LVIDd 2D 4.23 cm [ 3.50 - 5.70 ] AV Peak Jonathon 1.38 m/s LVIDs 2D 3.01 cm [ 3.10 - 4.60 ] AV Peak PG 7.62 mmHg IVSd 2D 0.99 cm [ 0.60 - 1.20 ] AV Mean PG 4.00 mmHg LVPWd 2D 1.00 cm [ 0.60 - 1.10 ] AV VTI 28.30 cm LV Thickness Ratio 0.99 LVOT Peak Jonathon 1.08 m/s LV Mass 2D 140.26 g LVOT Peak PG 4.67 mmHg LV Mass Index 2D 70.48 g/m2 LVOT Mean PG 3.00 mmHg RWT 0.47 LVOT VTI 22.80 cm EDV Mod BP 56.60 ml [ 46.00 - 106.00 ] LVOT Diam 2.30 cm LV EDV Index 28.44 ml/m2 KIMBERLYN VTI 3.35 cm2 ESV Mod BP 24.10 ml [ 14.00 - 42.00 ] KIMBERLYN Vmax 3.25 cm2 EF Mod BP 57 % [ 54 - 74 ] LVOT/AV VTI 0.81 - Dimensionless index (DVI) LA Dimension 2D 3.70 cm [ 1.90 - 4.00 ] MV E Peak Jonathon 0.70 m/s LA Length 2C 6.07 cm MV A Peak Jonathon 0.84 m/s LA Length 4C 5.69 cm MV E/A 0.80 ratio LA Volume BP 70.00 ml MV Decel Time 211.00 msec LA Volume Index 35.18 ml/m2 [ 16.00 - 34.00 ] Med E` Jonathon 8.43 cm/sec RV Base Dimen 2D 3.7 cm [ 2.5 - 4.2 ] Lat E` Jonathon 10.10 cm/sec TAPSE 3.00 cm [ 1.71 - 5.00 ] Average E/E` 7.56 RA Volume 32.10 ml RV S` 17.50 cm/sec RA Volume Index 16.13 ml/m2 TR Peak Jonathon 2.89 m/s IVC Diam 2.04 cm TR Peak PG 33.4 mmHg AoR Diam 2D 3.00 cm [ 2.00 - 3.70 ] PV Peak Jonathon 1.02 m/s Ao Root Index 1.51 cm/m2 [ 1.00 - 2.00 ] PV Peak PG 4.16 mmHg Asc Ao Diam 2D 3.20 cm PV Mean PG 3.00 mmHg Asc Ao Index 1.61 cm/m2 RVOT VTI 16.70 - ATTESTATION: I have reviewed and interpreted the pertinent images and measurements of this study. I attest to the conclusions in the final report that is provided above. DISCLAIMER: The study images and the final report will be retained in the patient chart by the Echo Laboratory for the legally required time period. This chart constitutes the legal record of any testing performed. Electronically Signed By: Madeleine Mejia MD 08/16/2024 4:23:39 PM CDT Procedure Note Madeleine Mejia MD - 08/16/2024 Transthoracic Echocardiographic Report Patient Name: MASSIEL CASE J : 1945 (79y 3m) Gender: F Study Date: 08/13/2024 01:02:05 PM Ht(Inch): 64 Wt(Lb): 192.99 BSA: 1.99 Histological Illustrator: RAJANI Harris Order Provider: MICHAELA SMITH Heart Rate: 83 BMI: 33.12 BP: 138 / 76 Ref Provider: MICHAELA SMITH PROCEDURES: Echocardiographic Report: ([id number]) Transthoracic complete echo, 2D,spectral and tissue Doppler, color flow Doppler, M-mode. Technically difficult study due to: Technically difficult study due toBody Habitus. INDICATIONS: R06.02 Shortness of breath. FINDINGS: Left Ventricle: Normal left ventricular cavity size. Normal Leftventricular wall thickness. Normal left ventricular systolic function. The EjectionFraction (Johns's) is measured at 57 %. Diastolic Function Left ventricular diastolicparameters are consistent with Grade I diastolic dysfunction (normal LA pressure). Regional Wall Motion: There are no regional wall motion abnormalities. Right Ventricle: Normal right ventricular size. Normal right ventricularsystolic function. Left Atrium: Mildly dilated left atrium. Right Atrium: The right atrium is normal in size. Atrial Septum: No shunt by color Doppler. Mitral Valve: Normal mitral valve leaflet structure. No mitralregurgitation seen. No mitral valve stenosis. Aortic Valve: Trileaflet aortic valve. No aortic regurgitation seen. Noaortic valve stenosis. The mean transaortic gradient is 4 mmHg. Tricuspid Valve: The tricuspid valve demonstrates normal leafletstructure. There is mild tricuspid regurgitation. Normal estimated pulmonary artery systolicpressure. No tricuspid valve stenosis. Pulmonic Valve: No evidence of pulmonic regurgitation. Pericardium: No pericardial effusion noted. Aorta: Normal aortic root. The aortic Sinus is normal in size. IVC: IVC is normal in size. CONCLUSIONS: 1. Normal left ventricular systolic function. The Ejection Fraction(Johns's) is measured at 57 %. Diastolic Function Left ventricular diastolic parametersare consistent with Grade I diastolic dysfunction (normal LA pressure). 2. There is mild tricuspid regurgitation. MEASUREMENTS: 2D/MM Value Range DopplerValue LVIDd 2D 4.23 cm [ 3.50 - 5.70 ] AV Peak Vel1.38 m/s LVIDs 2D 3.01 cm [ 3.10 - 4.60 ] AV Peak PG7.62 mmHg IVSd 2D 0.99 cm [ 0.60 - 1.20 ] AV Mean PG4.00 mmHg LVPWd 2D 1.00 cm [ 0.60 - 1.10 ] AV VTI28.30 cm LV Thickness Ratio 0.99 LVOT Peak Vel1.08 m/s LV Mass 2D 140.26 g LVOT Peak PG4.67 mmHg LV Mass Index 2D 70.48 g/m2 LVOT Mean PG3.00 mmHg RWT 0.47 LVOT VTI22.80 cm EDV Mod BP 56.60 ml [ 46.00 - 106.00 ] LVOT Diam2.30 cm LV EDV Index 28.44 ml/m2 KIMBERLYN VTI3.35 cm2 ESV Mod BP 24.10 ml [ 14.00 - 42.00 ] KIMBERLYN Vmax3.25 cm2 EF Mod BP 57 % [ 54 - 74 ] LVOT/AV VTI0.81 - Dimensionless index (DVI) LA Dimension 2D 3.70 cm [ 1.90 - 4.00 ] MV E Peak Vel0.70 m/s LA Length 2C 6.07 cm MV A Peak Vel0.84 m/s LA Length 4C 5.69 cm MV E/A0.80 ratio LA Volume BP 70.00 ml MV Decel Tste150.00 msec LA Volume Index 35.18 ml/m2 [ 16.00 - 34.00 ] Med E` Vel8.43 cm/sec RV Base Dimen 2D 3.7 cm [ 2.5 - 4.2 ] Lat E` Vel10.10 cm/sec TAPSE 3.00 cm [ 1.71 - 5.00 ] Average E/E`7.56 RA Volume 32.10 ml RV S`17.50 cm/sec RA Volume Index 16.13 ml/m2 TR Peak Vel2.89 m/s IVC Diam 2.04 cm TR Peak PG33.4 mmHg AoR Diam 2D 3.00 cm [ 2.00 - 3.70 ] PV Peak Vel1.02 m/s Ao Root Index 1.51 cm/m2 [ 1.00 - 2.00 ] PV Peak PG4.16 mmHg Asc Ao Diam 2D 3.20 cm PV Mean PG3.00 mmHg Asc Ao Index 1.61 cm/m2 RVOT VTI16.70 - ATTESTATION: I have reviewed and interpreted the pertinent images and measurements ofthis study. I attest to the conclusions in the final report that is provided above. DISCLAIMER: The study images and the final report will be retained in the patientchart by the Echo Laboratory for the legally required time period. This chart constitutesthe legal record of any testing performed. Electronically Signed By: Madeleine Mejia MD 08/16/2024 4:23:39 PM CDT Michaela Smith PRODUCT ASSURANCE ENGINEER CV ECHO PROCEDURES Final Res ult from Last 3 Months Insurance Member Subscriber Plan / Payer ( fective 2022-Present) Name:Massiel Case Relation to Subscriber:Self Name:Massiel Case Payer ID:[id number] (NAIC) Type:AETNA MEDICARE Address: [place] [phone] AETNA MEDICARE [employer] MEDICARE Care Teams Boiler Out Relationship Specialty Start Date End Date Monroe Reyes DO PCP - General Internal Medicine 10/22/22 Shira Adan, wall to wall carpet installer 11/03/19 Shira Adan, wall to wall carpet installer 12/06/19 Shira Adan, wall to wall carpet installer 01/07/20
--- OUTSIDE RECORDS SUMMARY | 2024-09-23 13:47 | XMS_ITS | Clinical Summary ---
Author Organization [facility] Address [facility] [place] [address] Care Team Providers Care Professor Of Practice Name Role Phone Nafisavidal Monroe Carol DO Primary Care Provider [phone] Allergies Active Allergy Reactions Criticality Noted Date [...] C 1000 MG tabletIndications: Vitamin C Imbalance (Inactive) Take 1,000 mg by mouth daily. Indications: [...] 6 H PRF NAUSEA OR VOM 11/26/19 Active Active Problems Problem Noted Date Diagnosed [...] Status Comments Brother Father (Age 70) of [place] Maternal Aunt Maternal Grandfather Maternal Grandmother Maternal [...] Comments Blood Pressure 116/68 03/29/2020 3:05 PM HORSEBACK RIDING INSTRUCTOR Pulse 91 03/29/2020 3:02 PM HORSEBACK RIDING INSTRUCTOR Temperature 36.3 C (97.3 F) 03/29/2020 3:02 PM HORSEBACK RIDING INSTRUCTOR Respiratory Rate 18 03/29/2020 3:02 PM HORSEBACK RIDING INSTRUCTOR Oxygen Saturation 95% 03/29/2020 3:02 PM HORSEBACK RIDING INSTRUCTOR Inhaled Oxygen Concentration - - Weight 88.8 kg (195 lb 11.2 oz) 03/29/2020 3:02 PM HORSEBACK RIDING INSTRUCTOR Height 165.1 cm (5' 5) 03/29/2020 3:02 PM HORSEBACK RIDING INSTRUCTOR Body Mass Index 32.57 03/29/2020 3:02 PM HORSEBACK RIDING INSTRUCTOR Plan of Treatment Health Maintenance Due Date Last Done Comments DTaP, Tdap and Td Vaccines ( 1 - Tdap) 1964 Annual Medicare Wellness Visit 2008 Dexa Scan (General) 2008 Pneumococcal Vaccine: 50+ Years (2 of 2 - PPSV23) 03/31/2018 03/31/2017, 12/19/2014 RSV Immunization or 60+ Years (1 - 1-dose 75+ series) 2018 COVID-19 Vaccine (2023-2 5 season) 2023 PHQ-2 (Physician [place]) 03/10/2024 Zoster Vaccines Completed 09/16/2017, 07/15/2017 Meningococcal B Vaccine Aged Out No l onger eligible based on patient's age to complete this topic Meningococcal Vaccine Aged Out No zaki osvaldo eligible based on patient's age to complete this topic RSV Immunizations Under 20 Months Aged Out No longer eligible b ased on patient's age to complete this topic Medical Devices Implanted Type Area Mining Manager Device Identifier Shelf Expiration Date Model / Serial / Lot Cement Full Dose - [id number] Implanted:Qty: 2 on 09/28/2019 by Zuhair Gutiérrez MD at [facility] Cement Implant Right: Knee [employer] DIV [employer] MARI 03/09/2021 [id number] / / [id number] Persona The Personalized Knee System All Poly Patella Cemented Implanted:Qty: 1 on 09/28/2019 by Zuhair Gutiérrez MD at [facility] Knee Components Right: Knee [employer] 06/08/2027 [id number] 00-29 / / [id number] Persona The Personalized Knee System Natural Tibia Cemented Implanted:Qty: 1 on 09/28/2019 by Zuhair Gutiérrez MD at [facility] Knee Components Right: Knee [employer] 05/07/2029 [id number] 67-02 / [id number] Persona The Personalized Knee System Femur Cemented Posterior Stabalized Implanted:Qty: 1 on 09/28/2019 by Zuhair Gutiérrez MD at [facility] Knee Components Right: Knee [employer] 03/09/2029 [id number] 62-02 / / [id number] Persona The Personalized Knee System Articular Surface Fixed Bearing Posterior Stabalized Implanted:Qty: 1 on 09/28/2019 by Zuhair Gutiérrez MD at [facility] Knee Components Right: Knee [employer] 06/08/2021 [id number] 05-14 / [id number] Insurance MED [facility] [place] [phone] Advance Directives * Full Code (Latest Code Status on File) Date Activated Date Inactivated Comments 10/01/2019 9:10 AM * Full Code Date Activated Date Inactivated Comments 09/28/2019 6:44 PM 09/30/2019 4:13 PM Care Teams Professor Of Practice Relationship Specialty Start Date End Date Monroe Reyes DO [address] [place] [address] PCP - General INTERNAL MEDICINE 07/23/19
--- OUTSIDE RECORDS SUMMARY | 2024-09-23 13:47 | XMS_ITS | Encounter Summary ---
Author Organization [facility] Address [address] [place] [address] Care Team Providers Care Billiard Parlor Manager Name Role Phone Deacon Sainz MD Unavailable Monroe Reyes DO Primary Care Provider Montserrat Garcia MD Unavailable [phone] Deacon Sainz MD Unavailable Encounter Details Date Type Department Care Team (Late st Contact Info) Description 04/07/2024 Lab Requisition [facility] - DermPath Lab [address] [facility] [place] [id number] Giulia Nicholson MD [address] [facility] [address] [place] [address] Social History Tobacco Use Types Packs/Day Years Used Date Smoking Tobacco: Never Smokeless Tobacco: Never Alcohol Use Standard Drinks/Week Comments Yes 0 (1 standard drink = 0.6 oz pur e alcohol) once a month PHQ-2 Answer Date Recorded Patient Health Questionnaire-2 Score 0 12/29/2023 Comments Unknown Sex and Gender Information Value Date Recorded Sex Assigned at Not on file Legal Sex Female 11:29 AM CDT Gender Identity Female 10/23/2021 8:54 PM CDT Sexual Orientation Choose not to disclose 2021 8:54 PM CDT documented as of this encounter Plan of Treatment Not on file documented as of this encounter Procedures Procedure Name Priority Date/Time Associated Diagnosis Comments DERMATOPATHOLOGY Routine 04/07/2024 1:35 PM MOTOR ASSEMBLER documented in this encounter Results * DERMATOPATHOLOGY (04/07/2024 1:35 PM MOTOR ASSEMBLER) Case Report Dermatopathology Report Case: [id number] Authorizing Provider: Giulia Nicholson MD Collected: 04/07/2024 01:35 PM Ordering Location: [facility] - Received: 04/08/2024 10:44 AM DermPath Lab Pathologist: An Woods MD Specimen: Skin, right upper eyebrow 6:09 PM [facility] DERMATOPATHOLOGY [facility]ORATORY Final Diagnosis Specimen A. 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 The specimen consists of a shave biopsy measuring 6x4x1 mm. Jar 0. 6:09 PM [facility] DERMATOPATHOLOGY [facility]ORATORY Microscopic Description Specimen A. SKIN, right upper eyebrow: The epidermis shows parakeratosis, full thickness disorderly maturation of keratinocytes, mitoses at different levels, and dyskeratotic cells. 6:09 PM [facility] DERMATOPATHOLOGY [facility]ORATORY Disclaimer An external and internal positive and negative controls are appropriate for the histochemical, immunohistochemical and immunofluorescence stain(s) in this case (if any), except where stated explicitly. The performance characteristics of the stain(s) cited in this report were developed and its performance characteristic determined by the Dermatopathology Laboratory at [facility], directed by Dr. Adams Moody. These tests need not be, and therefore are not, approved by the [place] Food and Drug Administration. The tests are used for clinical purposes. Billing Codes Specimen Charges Stain Charges 04166 1 6:09 PM [facility] DERMATOPATHOLOGY [facility]ORATORY Embedded Images 6:09 PM MOTOR ASSEMBLER DERMATOPATHOLOGY LABORATORY Pathology/Cytolo gy TISSUE SPECIMEN FROM SKIN / Unknown 04/07/2024 1:35 PM MOTOR ASSEMBLER 04/08/2024 10:44 AM MOTOR ASSEMBLER Giulia Nicholson MD LAB - PATHOLOGY/CYTOLOGY OR DERABLES Final Result DERMATOPATHOLOGY LABORATORY [facility] - Department of Dermatology [facility] Medicine [address] [place] [address], [address] [phone] documented in this encounter Visit Diagnoses Not on filedocumented in this encounter Care Teams Billiard Parlor Manager Relationship Specialty [place] [address] [place] [address] PCP - General Internal Medicine 07/21/12 [place] [address] [place] [address] Orthopedic Surgery 07/21/12 [place] [address] [place] [address] Orthopedic Surgery 10/24/14 [place] [address] [place] [address] Surgeon Orthopedic Surgery 08/25/20 documented as of this encounter
--- OUTSIDE RECORDS SUMMARY | 2024-09-23 13:47 | XMS_ITS | Clinical Summary ---
Author Organization [facility] at [facility] Address [address] [place] [address] Care Team Providers Care Electrical Project Engineer Name Role Phone Shira Adan RN Unavailable Unavailable Shira Adan RN Unavailable Unavailable Shira Adan RN Unavailable Unavailable Monroe Reyes DO Primary Care Provider [phone] Allergies Active Allergy Reactions Criticality Noted Date [...] 05/13/2013 AVN (avascular necrosis of bone) 07/21/2012 Encounters Date Type Department Care Team Description 09/13/2024 Telephone [facility] Pulmonary [address] [address] Shoshana Villanueva MD 09/08/2024 11:45 AM CDT Office Visit [facility] Pulmonary [address] [place] [phone] Shoshana Villanueva MD Obesity (BMI 35.0-39.9 without comorbidity) (Primary Dx); SOB (shortness of breath); Primary hypertension 08/18/2024 7:35 AM CDT - 08/18/2024 11:59 PM CDT Hospital Encounter [facility] Nuclear Medicine [address] [place] [address] Discharge Disposition: Discharge to home or self care 08/18/2024 7:35 AM CDT - 08/18/2024 11:59 PM CDT Hospital Encounter [facility] Nuclear Medicine [address] [place] [address] Shortness of breath Discharge Disposition: Discharge to home or self care 08/18/2024 7:35 AM CDT - 08/18/2024 11:59 PM CDT Hospital Encounter [facility] Nuclear Medicine [address] [place] [address] Shortness of breath Discharge Disposition: Discharge to home or self care 08/13/2024 12:51 PM CDT - 08/13/2024 11:59 PM CDT Hospital Encounter [facility] Cardiac Testing [address] [place] [address] Shortness of breath Discharge Disposition: Discharge to home or self care from Last 3 Months Surgical History Surgery Date Site/Laterality Comments REPLACEMENT [...] on file Legal Sex Female 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 Gender Identity Female 11/14/2022 12:33 PM CDT [...] 09/08/2024 11:29 AM CDT Plan of Treatment Health Maintenance Due Date Last Done Comments Depression Screening 1945 Fall Risk Assessment 1945 Osteoporosis Screening-Bone Density Scan 1945 Hepatitis B Screening 1961 Well Visit 65+ 2008 DTaP/Tdap/Td Vaccine (1 - Tdap) 08/11/2021 2 Covid-19 Vaccine (2023-2 5 season) 2023 12/11/2021, 08/10/2021, 12/19/2020, Additional history exists Influenza Vaccine (#1) 2024 2, 12/04/2020, 11/17/2019, Additional history exists Pneumococcal vaccine 65+ Completed 018, 03/08/2016, 12/19/2014 Zoster Vaccine Completed 09/16/2017, 07/15/2017 Procedures Procedure Name Priority Date/Time Associated Diagnosis [...] Narrative 08/18/2024 4:57 PM CDT Patient Id: Joleen Case is a 79 y.o. female. MR#: [id number] Study date: 08/18/2024 Report of the nuclear [...] ejection fraction is 79%. Copy to Monroe Reyes DO 08/18/2024 us Ronnie Smith NP IMG NM PROCEDURES Final Resu lt * [...] of this test will be reported separately us Ronnie Smith GELATIN DYNAMITE PACKING OPERATOR CV STRESS PROCEDURES Final R esult * TRANSTHORACIC ECHO (TTE) COMPLETE W DOPPLER/CF WO CONTRAST (08/13/2024 1:42 PM CDT) EF Mod BP 57 % CONS SCIMAGE Anatomical Region Laterality Modality Ultrasound 08/13/2024 1:02 PM CDT Narrative 08/16/2024 4:24 PM CDT Transthoracic Echocardiographic Report Patient Name: JOLEEN CASE J : 1945 (79y 3m) Gender: F Study Date: 08/13/2024 01:02:05 PM Ht(Inch): 64 Wt(Lb): 192.99 BSA: 1.99 Fire Control Assistant: RAJANI Harris Order Provider: RONNIE SMITH Heart Rate: 83 BMI: 33.12 BP: 138 / 76 Ref Provider: RONNIE SMITH PROCEDURES: Echocardiographic Report: ([id number]) Transthoracic complete echo, 2D, spectral and tissue [...] - 08/16/2024 Transthoracic Echocardiographic Report Patient Name: JOLEEN CASE J : 1945 (79y 3m) Gender: F Study Date: 08/13/2024 01:02:05 PM Ht(Inch): 64 Wt(Lb): 192.99 BSA: 1.99 Fire Control Assistant: RAJANI Harris Order Provider: RONNIE SMITH Heart Rate: 83 BMI: 33.12 BP: 138 / 76 Ref Provider: RONNIE SMITH PROCEDURES: Echocardiographic Report: ([id number]) Transthoracic complete echo, 2D,spectral and tissue Doppler, [...] LA Volume BP 70.00 ml MV Decel Slwc246.00 msec LA Volume Index 35.18 ml/m2 [ [...] Madeleine Mejia MD 08/16/2024 4:23:39 PM CDT us Ronnie Smith GELATIN DYNAMITE PACKING OPERATOR CV ECHO PROCEDURES Final Res ult from Last 3 Months Insurance [facility] [employer] Care Teams Electrical Project Engineer Relationship Specialty Start Date End Date Monroe Reyes DO PCP - General Internal Medicine 10/22/22 Shira Adan, dry paste supervisor 11/03/19 Shira Adan, dry paste supervisor 12/06/19 Shira Adan, dry paste supervisor 01/07/20
--- OUTSIDE RECORDS SUMMARY | 2024-09-23 13:47 | XMS_ITS | Encounter Summary ---
Author Organization [facility] Address [address] [place] [address] Care Team Providers Care Stock Associate Name Role Phone Deacon Sainz MD Unavailable [phone] Monroe Reyes DO Primary Care Provider Montserrat Garcia MD Unavailable Deacon Sainz MD Unavailable [phone] Encounter Details Date Type Department Care Team (Late st Contact Info) Description 03/13/2023 Lab Requisition [facility] D[facility] Lab [address] [facility] [place] [phone] Christen Kim DO [address] [facility] 3 [place] [address] Social History Tobacco Use Types Packs/Day Years Used Date Smoking Tobacco: Never Smokeless Tobacco: Never Alcohol Use Standard Drinks/Week Comments Yes 0 (1 standard drink = 0.6 oz pur e alcohol) once a month Comments Unknown Sex and Gender Information Value [...] Diagnosis Comments DERMATOPATHOLOGY Routine 03/13/2023 2:27 PM RN CLINICAL COORDINATOR documented in this encounter Results * DERMATOPATHOLOGY (03/13/2023 2:27 PM RN CLINICAL COORDINATOR) Case Report Dermatopathology Report Case: [id number] Authorizing Provider: Christen Kim DO Collected: 03/13/2023 02:27 PM Ordering Location: [facility] Received: 03/14/2023 02:01 PM Pathologist: An Woods MD Specimens: A) - Skin, right chest B) - Skin, right mid arm 12:[address] [facility] DERMATOPATHOLOGY LABORATORY Final Diagnosis Specimen A. SKIN, right chest: LICHEN PLANUS-LIKE KERATOSIS (BENIGN LICHENOID KERATOSIS) (L82.1) Specimen B. SKIN, right mid arm: HYPERPLASTIC (HYPERTROPHIC) ACTINIC KERATOSIS (L57.0) 12:[address] [facility] DERMATOPATHOLOGY LABORATORY at 1254 RN CLINICAL COORDINATOR Clinical History A: R/O BCC B: SK R/O Atypia 12:[address] [facility] DERMATOPATHOLOGY LABORATORY Gross Description [...] measuring 11x9x1 mm. Jar 0. 12:[address] [facility] DERMATOPATHOLOGY LABORATORY Microscopic Description [...] lower half of the epidermis. 12:[address] [facility] DERMATOPATHOLOGY LABORATORY Disclaimer An external and internal positive and negative controls are appropriate for the histochemical, immunohistochemical and immunofluorescence stain(s) in this case (if any), except where stated explicitly. The performance characteristics of the stain(s) cited in this report were developed and its performance characteristic determined by the Dermatopathology Laboratory at [facility], directed by Dr. Adams Moody. These tests need not be, and therefore are not, approved by the [place] Food and Drug Administration. The tests are used for clinical purposes. Billing Codes Specimen Charges Stain Charges 58885 48499 1 1 4 12:54 PM RN CLINICAL COORDINATOR DERMATOPATHOLOGY LABORATORY Embedded Images 4 12:54 PM RN CLINICAL COORDINATOR DERMATOPATHOLOGY LABORATORY Pathology/Cytology TISSUE SPECIMEN FROM SKIN / Unknown 03/13/2023 2:27 PM RN CLINICAL COORDINATOR 03/14/2023 2:01 PM RN CLINICAL COORDINATOR Miscellaneous samples (specimen) TISSUE SPECIMEN FROM SKIN / Unknown 03/13/2023 2:27 PM RN CLINICAL COORDINATOR 03/14/2023 2:01 PM RN CLINICAL COORDINATOR Christen Kim DO LAB - PATHOLOGY/CYTOLOGY ORDERABLES Final Result DERMATOPATHOLOGY LABORATORY [facility] - Department of Dermatology [facility] Medicine [address] [place] [address], [address] [phone] documented in this encounter Visit Diagnoses Not on filedocumented in this encounter Care Teams Stock Associate Relationship Specialty [place] [address] [place] [address] PCP - General Internal Medicine 07/21/12 [place] [address] [place] [address] Orthopedic Surgery 07/21/12 [place] [address] [place] [address] Orthopedic Surgery 10/24/14 [place] [address] [place] [address] Surgeon Orthopedic Surgery 08/25/20 documented as of this encounter
--- OUTSIDE RECORDS SUMMARY | 2024-09-23 13:47 | XMS_ITS | Clinical Summary ---
Author Organization [facility] Address [address] [facility] [place] [address] Care Team Providers Care Change Director Name Role Phone Deacon Sainz MD Unavailable [phone] Monroe Reyes DO Primary Care Provider Montserrat Garcia MD Unavailable [phone] Deacon Sainz MD Unavailable [phone] Source Comments [facility],non-owned Affiliates and Associated Physician Practices is amultiple site organization consisting of ambulatory clinics and hospital sitesin [place], [place], [place] and [place]. This disclosure is being madepursuant to the Care Everywhere program and may not contain all information available regarding this patient. Last updated 17.[facility] Allergies Active Allergy Reactions Criticality Noted Date Comments Cyclobenzaprine Nausea and/or Vomiting 08/23/19 20 Guaifenesin Palpitations 08/23/2019 Heart racing Meloxicam Nausea and/or Vomiting 08/23/2019 Nitrofurantoin Unknown Low 08/23/2019 Quinolones Nausea and/or Vomiting,Unknown Low 07/21/2012 Pseudoephedrine Sulfate Elevated Blood Pressure 07/21/2012 Medications * Be aware that medications may not be up to date on this document. Alwaysverify current medications with the patient. amLODIPine (NORVASC) 5 MG tablet Take 5 mg by mouth once daily 08/18/19 20 Active B Complex-C (VITAMIN B COMPLEX WITH C) Take 1 tablet by mouth once daily 10/01/19 20 Active glucosamine-cho ndroitin 500-400 MG capsule Take 2 capsules by mouth once daily 10/01/19 20 Active Multiple Vitamins-Minera ls (CENTRUM SILVER 50+WOMEN) TABS Take 1 tablet by mouth once daily 10/01/19 20 Active hydroCHLOROthia zide (MICROZIDE) 12.5 MG capsule Take 12.5 mg by mouth once daily Active calcium carbonate - vitamin D (CALCIUM+D3) 600-800 MG-UNIT tablet Take 1 tablet by mouth daily with breakfast Active ascorbic acid (VITAMIN C) 500 MG tablet Take 500 mg by mouth once daily Active methylcellulose (CITRUCEL) 500 MG tablet Take 500 mg by mouth once daily Active Multiple Vitamins-Minera ls (PRESERVISION AREDS 2) capsule Take 2 capsules by mouth 2 times daily Active HYDROcodone-dilcia taminophen (NORCO) 5-325 MG tabletIndicatio ns:Aftercare following left knee joint replacement surgery Take 1 (one) tablet by mouth every 6 hours as needed for Pain 28 tablet 11/17/19 21 Active Additional Information Patient not taking.Reported on 10/26/2021 amoxicillin-cla vulanate (Augmentin) 875-125 MG tablet Take 875 mg by mouth 2 times daily 07/26/19 22 Active atorvastatin (Lipitor) 10 MG tablet Take 10 mg by mouth at bedtime 04/24/19 22 Active hydrOXYzine HCl (Atarax) 10 MG tablet Take 10 mg by mouth 2 times daily as needed anxiety 05/26/19 22 Active mupirocin (Bactroban) 2 % ointment APPLY TO RIGHT CHEEK TWICE DAILY 10/17/19 22 Active sulfamethoxazol e-trimethoprim (Bactrim DS; Septra DS) 800-160 MG tablet Take 1 tablet by mouth 2 times daily 08/02/19 22 Active celecoxib (CeleBREX) 200 MG capsule TAKE 1 CAPSULE BY MOUTH TWICE DAILY 180 capsule 3 09/24/19 23 Active celecoxib (CeleBREX) 200 MG capsule TAKE 1 CAPSULE BY MOUTH TWICE DAILY 180 capsule 2 09/01/19 25 Active celecoxib (CeleBREX) 200 MG capsule Take 1 (one) capsule by mouth 2 times daily 180 capsule 2 01/01/20 24 025 Discontinued Active Problems Problem Noted Date Diagnosed Date Presence of left artificial knee joint 2 Primary osteoarthritis of left knee 08/25/2020 History of breast cancer 07/21/2012 AVN (avascular necrosis of bone) 07/21/2012 Encounters Date Type Department Care Team Description 08/31/2024 Telephone [facility] Orthopedics [address] [facility] [place] [address] Deacon Sainz MD Question 08/28/[address] [facility] [address] [facility], [facility] [address] [place] [address] Edson Weiss PA-C Refill Request from Last 3 Months Immunizations Immunization Administration Dates Next Due INFLUENZA VACCINE, HIGH-DOSE [...] A M CDT Height 165.1 cm (5' 5) 10/26/2020 8:04 AM CDT Body Mass Index [...] MEDICARE AWV CALENDAR YEAR 2024 INFLUENZA VACCINE (#1) 2024 , 11/17/2019, 11/30/2018 HEPATITIS B VACCINE Aged Out [...] this topic Medical Devices Implanted Type [employer] Commander Device Identifier Shelf Expiration Date Model / Serial / Lot Cmnt Bone Djo Srg Cblt 40gm Hvisc Strl Implanted:Qty: 1 on 10/26/2020 by Deacon Sainz MD at [facility] Left: Knee [employer] 04/11/2022 [id number] / / [id number] Cmpnt Ptlr 28mm 1 Pg Wire Ascnt Arcm Kn Implanted:Qty: 1 on 10/26/2020 by Deacon Sainz MD at [facility] Left: Knee [employer] 07/28/2025 [id number] / / [id number] Cmpnt Fem Kn Lt Cr Cmnt Prm Vngrd Intlk Implanted:Qty: 1 on 10/26/2020 by Deacon Sainz MD at [facility] Left: Knee [employer] 05/17/2030 [id number] / / [id number] Tray Tib 75mm Kn Cocr I Beam Implanted:Qty: 1 on 10/26/2020 by Deacon Sainz MD at [facility] Left: Knee [employer] 08/15/2030 [id number] / / [id number] Brng [id number] Vngrd Arcm Kn Ant Stab Implanted:Qty: 1 on 10/26/2020 by Deacon Sainz MD at [facility] Left: Knee [employer] 08/08/2025 [id number] / / [id number] Insurance [employer] MEDICARE ADV Advance Directives * Full Code (Latest Code Status on File) Date Activated Date Inactivated Comments 10/26/2020 2:44 PM 10/27/2020 3:50 PM Care Teams Change Director Relationship Specialty [place] [address] [place] [address] PCP - General Internal Medicine 07/21/12 [place] [address] [address] [place] [address] Orthopedic Surgery 07/21/12 [place] [address] [place] [address] Orthopedic Surgery 10/24/14 [place] [address] [place] [address] Surgeon Orthopedic Surgery 08/25/20
--- OUTSIDE RECORDS SUMMARY | 2024-09-23 13:47 | XMS_ITS | Clinical Summary ---
Author Organization [facility] Care Team Providers Care Commissary Manager Name Role Phone Unavailable Primary Care Provider Unavailabl e Social History Tobacco Use Types Packs/Day Years Used Date Smoking Tobacco: Never Assessed Comments Unknown Sex and Gender Information Value Date Recorded Sex Assigned at Not on file Legal Sex Female 10:13 AM MEMBERSHIP SOLICITOR Gender Identity Not on file Sexual Orientation Not on file Plan of Treatment Health Maintenance Due Date Last Done Comments Hepatitis C Virus (HCV) Screening 1945 TdaP Immunization 1945 Respiratory Syncytial Virus (RSV) Immunization (Adult) (1 - 1-dose 75+ series) 2018 SARS-COV-2 Immunization (2023- season) 2023 12/19/2020, 05/23/2020, 05/01/2020 Influenza Immunization (#1) 11/08/202411/09, 11/17/2019, 11/30/2018, Additional history exists Pneumococcal Immunization (50+ years) Completed 03/31/2017, 03/08/2016, 12/19/2014 Zoster Immunization Completed 09/16/2017, 8 Hepatitis B Immunization Aged Out No longer eligible based on patient's age to complete this topic Human Papillomavirus (HPV) Immunization Aged Out No longer eligible based on patient's age to complete this topic Meningococcal Immunization (ACWY) Aged Out No longer eligible based on patient's age to complete this topic Rotavirus Immunization Aged Out No lo nger eligible based on patient's age to complete this topic
== END 2024-09-23 13:43 | disposition home or self-care (01) ==
PROVIDERS: PCP Nurse Practitioner; Visit Provider Nurse Practitioner
DX: I73.9 Peripheral vascular disease, unspecified (principal); R20.0 Anesthesia of skin
CPT/HCPCS: 93922

== ENCOUNTER 2024-12-08 11:30 | Outpatient (RCR) | payer SELFPAY | END 2025-02-01 23:59 | disposition home or self-care (01) | LOC: ANHAUDASC 11:30 | PROVIDERS: PCP Nurse Practitioner; Visit Provider Nurse Practitioner | DX: Z46.1 Encounter for fitting and adjustment of hearing aid (principal) | CPT/HCPCS: 99199; V5261 ==